=== PATIENT | female | born 1950 | race Asian ===

== ENCOUNTER 2024-02-19 08:12 | Inpatient (IN) | payer OTHER, SELFPAY ==
[2024-02-18 15:08] VITALS: BP 157/82
--- NOTE | 2024-02-18 16:09 | ED.GENMED ---
History of Present Illness
General
Chief Complaint: Breathing Problem
Time Seen by Provider: 02/18/24 16:09
History of Present Illness
History of Present Illness:
HPI: Patient comes in due to worsening shortness of breath. She started having shortness of breath in June. She lives in [place] and was seen by a waste specialist and also is known to a solder making laborer. She states she was diagnosed with
'bronchiectasis and asthma earlier this year'. She had been on Wixela this led to oral thrush and she is not just taking albuterol. Her med list includes Solu-Medrol which she takes for 'arthritis'. Her son-in-law, lives locally noted that she
seemed to be getting more more short of breath the she was brought here as he was also concerned of ongoing wheezing.
EXAM:
GENERAL: Well appearing in no distress
HEENT: Moist oral mucosa
CARDIOVASCULAR: No murmurs, normal heart rate, regular rhythm, No chest wall tenderness
PULMONARY: Mild respiratory distress with mild conversational dyspnea, breath sounds are equally decreased with moderate wheeze
ABDOMEN: Soft with no peritoneal signs, no tenderness
NEUROLOGIC: Excellent strength all extremities, no coordination deficits
PSYCHIATRIC: Appropriate mental status, normal insight and judgement
EXTREMITIES: Nontender, trace if any distal lower extremity edema, moves all extremities equally
SKIN: No rash, no lesions
TIME OF INITIAL ENCOUNTER: 4:20 PM
NUMBER AND COMPLEXITY OF PROBLEMS ADDRESSED AT THE ENCOUNTER
� Chronic conditions affecting care: Asthma, high blood pressure, GERD
� Acute Exacerbation and/or Progression of Chronic Illness: This is a subacute problem and is worsening
� Differential Diagnosis includes: Exacerbation of bronchiectasis, reactive airway disease, asthma, pneumonia
AMOUNT AND/OR COMPLEXITY OF DATA TO BE REVIEWED AND ANALYZED
� I performed an independent evaluation of and my interpretation is:
EKG: Sinus 82, normal axis, no acute ST abnormality
CT:
X-rays:
Laboratory Studies: White count is 9.3, BNP is low
Other:
� Review of other/old records: No old records available for review in [facility]
� Clinical information was obtained by an independent historian: I spoke to son-in-law at bedside
� Prescriptions/Medications Considered but not given:
� Further testing considered but not performed:
RISK OF COMPLICATIONS AND/OR MORBIDITY OR MORTALITY OF PATIENT MANAGEMENT
� Social determinants of health affecting care: Lives in [place], here just visiting
� Discussion with other providers:
� Escalation of care including admission/observation vs risk of discharge considered: The patient has mild respiratory distress upon arrival with room air sats of 91 to 93%. I am giving IV steroids and will give DuoNebs. She
reports history of recently diagnosed bronchiectasis and asthma.
Course
Orders/Labs/Results
Orders:
Orders
02/18/24 15:14
Electrocardiogram (*1) Urgent
Reason for Study: Shortness of Breath
EKG- Treatment ONCE
02/18/24 16:20
Ipratropium/Albuterol Sulfate [Duoneb] 3 ml INH R NOW STA
MethylPREDNISolone PF [Solu-Medrol Pf] 125 mg IV NOW STA
02/18/24 16:21
Ipratropium/Albuterol Sulfate [Duoneb] 3 ml INH R NOW STA
CR Chest - 2 Views Urgent
Comment:
Reason For Exam: worsening SOB; 'bronchiectasis/asthma' per family
02/18/24 16:22
Comprehensive Metabolic Panel Urgent
NT-proBNP Urgent
02/18/24 16:23
Complete Blood Count/With Diff Urgent
Abnormal Lab Results
02/18/24 02/18/24
16:22 16:23
Absolute Monos (auto) 0.8 H 10^3/uL
(0.1-0.6)
Lymphocytes % 19.1 L %
(20.5-51.1)
AST 38 H U/L
(14-36)
Alkaline Phosphatase 133 H U/L
(38-126)
02/18/24 16:23
02/18/24 16:22
Vital Signs
Initial and Last Documented VS:
Initial Vital Signs
Temp Pulse Resp BP Pulse Ox
97.7 F 78 18 157/82 93
02/18/24 15:08 02/18/24 15:08 02/18/24 15:08 02/18/24 15:08 02/18/24 15:08
Last Documented Vital Signs
Temp Pulse Resp BP Pulse Ox
97.7 F 78 18 157/82 93
02/18/24 15:08 02/18/24 15:08 02/18/24 15:08 02/18/24 15:08 02/18/24 16:20
ED Attending Note
-
Portions of this chart may have been created with voice recognition software.� Occasional wrong word or��sound alike� substitutions may have occurred due to the inherent limitations of voice recognition software.
Discharge Plan
Interventions
Interventions:
*Risk Screen - Suicide Last Done: 02/18/24 15:08
*General Assessment Last Done: 02/18/24 15:08
*Neglect/Abuse Screening Last Done: 02/18/24 15:08
*ED COVID-19 Vaccine History Last Done: 02/18/24 15:08
ED- Cardiac Assessment Last Done: 02/18/24 16:20
ED- Pulmonary Assessment Last Done: 02/18/24 16:20
Discharge Date and Time
Print Language: SLOVENIAN
[2024-02-18 16:14] VITALS: BP 173/101
[2024-02-18 16:17] VITALS: BMI 22.3
[2024-02-18 16:30] LABS: % Basophils 0.6 % (0-2); % Eosinophils 5.1 % (0-6); % Immature Granulocytes 0.2 % (0-0.5); % Lymphocytes 19.1 % (20.5-51.1); % Monocytes 8.9 % (1.7-9.3); % Neutrophils 66.1 % (42.2-75.2); Absolute Basophils 0.1 10^3/uL (0-0.2); Absolute Eosinophils 0.5 10^3/uL (0-0.7); Absolute Lymphocytes 1.8 10^3/uL (1.2-3.4); Absolute Monocytes 0.8 10^3/uL (0.1-0.6); Absolute Neutrophils 6.1 10^3/uL (1.4-6.5); Hematocrit 40.6 % (37.0-47.0); Hemoglobin 14.1 g/dL (12.0-16.0); Mean Corp Hgb Conc. 34.7 g/dL (33.0-37.0); Mean Corpuscular Hgb 30.6 pg (27.0-31.0); Mean Corpuscular Volume 88.1 fL (81.0-99.0); Mean Platelet Volume 9.6 fL (7.4-10.4); Nucleated Red Blood Cells % 0 %; Platelet Count 271 10^3/uL (130-400); Red Blood Cell Count 4.61 10^6/uL (4.20-5.40); Red Cell Dist. Width 12.2 % (11.5-14.5); White Blood Cell Count 9.3 10^3/uL (4.8-10.8)
[2024-02-18] MEDS: DUONEB 3 ML INH ×4 (16:32→20:07)
[2024-02-18] MEDS: SOLU-MEDROL PF 125 MG IV (16:33)
[2024-02-18 16:51] LABS: NT-proBNP 240 pg/ml
[2024-02-18 16:52] LABS: ALT (SGPT) 29 U/L (0-35); AST (SGOT) 38 U/L (14-36); Albumin 4.7 g/dl (3.5-5.0); Alkaline Phosphatase 133 U/L (38-126); Blood Urea Nitrogen 16 mg/dl (7-17); Calcium 9.2 mg/dl (8.4-10.2); Carbon Dioxide 26 mmol/L (22-30); Chloride 105 mmol/L (98-107); Estimated Creatinine Clearance 52 ml/min; Glucose 88 mg/dl (70-99); Potassium 4.8 mmol/L (3.5-5.1); Sodium 143 mmol/L (135-145); Total Bilirubin 0.5 mg/dl (0.2-1.3); Total Protein 8.2 g/dl (6.3-8.2); eGFR > 60.00
[2024-02-18 17:22] VITALS: BP 148/64
[2024-02-18 18:00] VITALS: BP 141/71
--- NOTE | 2024-02-18 18:02 | HPS.HSE ---
Family Physician
-
Family Physician:
Chief Complaint
-
worsening soB and wheeze
History of Present Illness
73F res of [place] HX chronic Solu-Medrol for arthritis , recently Dxed Asthma, Bronchiectasis seeen at ER for evalaution of
- worsening SoB since Jun
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
- had been on Wixela this led to oral thrush and she is not just taking albuterol.
- Her son-in-law, lives locally noted that she seemed to be getting more more short of breath and wheezing
Medical History
Past Medical History
Past Medical History: Reports Asthma, HTN and Other (Bronchiectasis )
Additional Past Medical History:
Arthritis , Hernia , GERD
Past Surgical History: Reports Appendectomy and Gynocological (htsterectomy )
Social History
Tobacco: Non-smoker
Alcohol: None
Family History
Family History: Not pertinent
Allergies / Home Medications
Allergies reflects when Allergies were last updated in [facility].
Home Medications with original date entered in [facility]
Allergy/Medication List:
Allergies
Allergy/AdvReac Type Severity Reaction Status Date / Time
clindamycin Allergy Unknown Verified 02/18/24 15:14
codeine Allergy Unknown Verified 02/18/24 15:14
morphine Allergy Unknown Verified 02/18/24 15:14
Home Medications
albuterol sulfate 90 mcg/actuation aerosol inhaler 2 inh inhalation R DAILY 02/18/24
calcium carbonate 500 mg PO DAILY 02/18/24
cholecalciferol (vitamin D3) 25 mcg (1,000 unit) tablet 25 mcg PO DAILY 02/18/24
cyclosporine 0.05 % eye drops in a dropperette (Restasis) 1 drp BOTH EYES BID 02/18/24
latanoprost 0.005 % eye drops 1 drp BOTH EYES QPM 02/18/24
losartan 50 mg tablet 50 mg PO DAILY 02/18/24
mesalamine 1.2 gram tablet,delayed release (Lialda) 2.4 g PO DAILY 02/18/24
omeprazole 40 mg capsule,delayed release 40 mg PO DAILY 02/18/24
Review of Systems
-
Constitutional: Reports No Symptoms
EENT: Reports No Symptoms
Respiratory: Reports See HPI and Trouble Breathing
Cardiac: Reports No Symptoms
Abdomen/GI: Reports No Symptoms
: Reports No Symptoms
Musculoskeletal: Reports No Symptoms
Skin: Reports No Symptoms
Neurological: Reports No Symptoms
Endocrine: Reports No Symptoms
Hematologic/Lymphatic: Reports No Symptoms
Psych: Reports No Symptoms
Physical Exam
Vital Signs
Vital Signs
Temp Pulse Resp BP Pulse Ox
97.7 F 78 18 148/64 92
02/18/24 15:08 02/18/24 15:08 02/18/24 15:08 02/18/24 17:22 02/18/24 17:22
Physical Exam
General: Well Developed, Well Nourished and No Apparent Distress
HEENT: NormoCephalic, Moist mucous membranes and Atraumatic
Cardiac: S1/S2 and Regular Rhythm; No Murmur or Rub
GI: Soft, Non Tender, Non Distended and Normal Bowel Sounds; No Organomegaly
Rectal: Deferred by Provider
Musculoskeletal: No Clubbing, No Cyanosis and No Edema
Skin: No Rash
Neuro: Nonfocal/grossly intact
Laboratory Results
-
02/18/24 16:23
02/18/24 16:22
Laboratory Results
Total Bilirubin 0.5 mg/dl (0.2-1.3) 02/18/24 16:22
AST 38 U/L (14-36) H 02/18/24 16:22
ALT 29 U/L (0-35) 02/18/24 16:22
Alkaline Phosphatase 133 U/L (38-126) H 02/18/24 16:22
Data Reviewed
-
Diagnostic Radiology: Report Reviewed by me
Impression/Plan
-
Reviewed VS: afebrile RR 18 BP 155/80 POx low 90s on RA
CXR: Mild bilateral upper lobe bronchiectasis
No prior hospitalist admission:
ASSESSMENT & PLAN
Progressive SoB with wheeze: Afebrile and nl WCC
Suspect AE Asthma/ Bronchiectasis with bronchospasm
- sputum is mostly white
- CXR: Mild bilateral upper lobe bronchiectasis
- cont IV Solumedrol 40mg q12h
- Cont DuoNeb QID and PRN
- Supplemental O2 to keep > 92
- check PCT
- Hold off ABx for now
- Pul consult
Essential HTN
- cont. losartan
HX Colitis
- cont. Mesalamine
GERD
- on MAT CLEANING MACHINE OPERATOR PO PPI
DVT Px: LMWH
Code: full code
Obs MS
[2024-02-18 18:55] LABS: Procalcitonin < 0.05 ng/ml (0.0-0.25)
[2024-02-18 19:00] VITALS: BP 131/67
[2024-02-18 19:42] VITALS: BMI 25.3
--- NOTE | 2024-02-18 19:55 | PTCARENOTE ---
Received pt from ED via stretcher. Pt ambulated to bed independently. Son-in-law at bedside. Pt complained of headache, requested food, boxed lunch provided. AAOx3. VSS. Assessed and oriented to room. Pt verbalized understanding of call da silva. Call
da silva within close reach.
[2024-02-18 20:06] VITALS: BP 114/74
--- NOTE | 2024-02-18 20:45 | PTCARENOTE ---
Pt complained of dry cough and indigestion/heartburn. PHOTOGRAPHIC RESTORER made aware, new orders provided, see MAR. Will continue to monitor.
[2024-02-18] MEDS: RESTASIS 0.05% OPHTHALMIC EMULSION 1 DROPS BOTH EYES (21:21)
[2024-02-18] MEDS: TUMS CHEWABLE TABLET 200 MG PO (21:21)
[2024-02-18] MEDS: LOVENOX 40 MG SC (21:21)
[2024-02-18] MEDS: ROBITUSSIN DM 5 ML PO (21:21)
[2024-02-18] MEDS: TYLENOL 650 MG PO (22:09)
[2024-02-19] VITALS: BP 103/54
[2024-02-19] MEDS: SOLU-MEDROL PF 40 MG IV ×2 (04:40→17:05)
[2024-02-19] MEDS: FLUSH (NSS) 2 FLUSH IV (04:40)
[2024-02-19 06:44] LABS: % Basophils 0.2 % (0-2); % Immature Granulocytes 0.4 % (0-0.5); % Lymphocytes 13.5 % (20.5-51.1); % Monocytes 3.3 % (1.7-9.3); % Neutrophils 82.6 % (42.2-75.2); Absolute Lymphocytes 0.7 10^3/uL (1.2-3.4); Absolute Monocytes 0.2 10^3/uL (0.1-0.6); Absolute Neutrophils 4.2 10^3/uL (1.4-6.5); Hematocrit 35.9 % (37.0-47.0); Hemoglobin 12.5 g/dL (12.0-16.0); Mean Corp Hgb Conc. 34.8 g/dL (33.0-37.0); Mean Corpuscular Hgb 30.3 pg (27.0-31.0); Mean Corpuscular Volume 86.9 fL (81.0-99.0); Mean Platelet Volume 9.8 fL (7.4-10.4); Nucleated Red Blood Cells % 0 %; Platelet Count 257 10^3/uL (130-400); Red Blood Cell Count 4.13 10^6/uL (4.20-5.40); White Blood Cell Count 5.1 10^3/uL (4.8-10.8)
[2024-02-19 07:31] LABS: Blood Urea Nitrogen 17 mg/dl (7-17); Calcium 9.1 mg/dl (8.4-10.2); Carbon Dioxide 24 mmol/L (22-30); Chloride 106 mmol/L (98-107); Estimated Creatinine Clearance 57 ml/min; Glucose 127 mg/dl (70-99); Potassium 4.8 mmol/L (3.5-5.1); Sodium 141 mmol/L (135-145); eGFR > 60.00
[2024-02-19 07:48] VITALS: BP 130/70
[2024-02-19] MEDS: DUONEB 3 ML INH ×4 (07:51→19:27)
[2024-02-19] MEDS: COZAAR 50 MG PO (08:13)
[2024-02-19] MEDS: VITAMIN D3 (cholecalciferol) 25 MCG PO (08:13)
[2024-02-19] MEDS: OSCAL CAL 500 500 MG PO (08:13)
[2024-02-19] MEDS: RESTASIS 0.05% OPHTHALMIC EMULSION 1 DROPS BOTH EYES ×2 (08:13→20:06)
[2024-02-19] MEDS: TESSALON PERLES 200 MG PO ×2 (08:13→20:11)
[2024-02-19] MEDS: PROTONIX 40 MG PO (08:13)
[2024-02-19 08:45] VITALS: BP 135/77; PULSE 97; O2SAT 93
--- NOTE | 2024-02-19 09:24 | PTOTSP ---
Received order for PT and reviewed chart. S/w OT who reports pt is ambulating independently without need for any assistive device. No PT needs. Will sign off.
--- NOTE | 2024-02-19 10:10 | W.PN.HOSP.TC ---
Today's Communication/Plan
-
c/w Neb, Steroid, Cough medicine
Assessment / Plan
Assessment / Plan
Physical Exam
General: Well Developed, Well Nourished and No Apparent Distress
HEENT: NormoCephalic, Moist mucous membranes and Atraumatic
Cardiac: S1/S2 and Regular Rhythm; No Murmur or Rub
GI: Soft, Non Tender, Non Distended and Normal Bowel Sounds; No Organomegaly
Rectal: Deferred by Provider
Musculoskeletal: No Clubbing, No Cyanosis and No Edema
Skin: No Rash
Neuro: Nonfocal/grossly intact
# acute exacerbation of bronchiectasis/asthma.
Bilateral expiratory wheezes heard, not severe
No hypoxia
She presented with progressive SOB with wheeze:
Afebrile and nl WCC
- sputum is mostly white
- CXR: Mild bilateral upper lobe bronchiectasis
- cont IV SoluMedrol 40mg q12h
- Cont DuoNeb QID and PRN
- Supplemental O2 to keep > 92
- Cough medicine, add Tessalon
- Appreciate pulmonary help
# Mild elevation in AST
No abd pain, no nausea
will monitor
No jaundice.
# Essential HTN
- cont. losartan
#HX Colitis
- cont. Mesalamine
# GERD
- on BUSINESS SERVICES VICE PRESIDENT PO PPI
Total time spent to see the patient, examine the patient on the floor, review data and lab results, discuss treatment plan with patient, nursing staff around 55 minutes
Anticipated Discharge: Within 24 hours
Subjective/Interval History
-
Date of Service: February 19, 2024
No sob
No chest pain
No fevers
Objective Data
-
Labs:
Laboratory Results
02/19/24
06:35
WBC 5.1
Hgb 12.5
Hct 35.9 L
Plt Count 257
Sodium 141
Potassium 4.8
Chloride 106
Carbon Dioxide 24
BUN 17
Creatinine 0.6
Glucose 127 H
Calcium 9.1
Vital Signs:
Vital Signs
Temp Pulse Resp BP Pulse Ox
97.9 F 67 16 130/70 92
02/19/24 07:48 02/19/24 08:13 02/19/24 07:48 02/19/24 08:13 02/19/24 07:48
I&O
02/18/24 02/19/24 02/20/24
06:59 06:59 06:59
Intake Total 240 / 240
Balance 240 / 240
--- NOTE | 2024-02-19 11:13 | CON.PUL ---
Consultation
Consultation Request
Date/Time Consultation Requested: 02/19/2024
Date/Time Consultation Performed: 02/19/2024
Requesting Provider: Dr. Hand
Performing Provider: Dr. Yao Chauhan
Reason for Consultation: Bronchiectasis/acute exacerbation
Medical History
-
History of Present Illness:
This is 73-year-old woman resident of [place], history of chronic steroid use for arthritis, recently diagnosed with asthma/bronchiectasis reports since June increased shortness of breath. She has been followed by pulmonary and rheumatology in
[place] and she was told she had bronchiectasis earlier this year.
She discontinued her inhaler Wixela due to oral thrush.
She was brought into the emergency room since she had increased shortness of breath and wheezing.
There is no report of hemoptysis or phlegm production.
Denies weight loss.
Reports intermittent acid reflux and)
Denies swallowing problems from
Has history of Crohn's disease on mesalamine. On remission/controlled
Denies weight loss, night sweats or fevers.
She is originally from [place], history of latent TB status post INH many years ago.
Past Medical History
Past Medical History: Other (See assessment and plan)
Social History
Tobacco: Non-smoker
Alcohol: None
Family History
Family History: Reviewed & Not Pertinent
Allergies / Home Medications
Allergies
Allergy/AdvReac Type Severity Reaction Status Date / Time
clindamycin Allergy Unknown Verified 02/18/24 15:14
codeine Allergy Unknown Verified 02/18/24 15:14
morphine Allergy Unknown Verified 02/18/24 15:14
Home Medications
�Medication �Instructions �Recorded �Confirmed �Last Taken �Type
albuterol sulfate 90 mcg/actuation 2 inh inhalation R DAILY 02/18/24 02/18/24 02/18/24 History
aerosol inhaler Lung/Breathing Issues
calcium carbonate 500 mg PO DAILY Supplement 02/18/24 02/18/24 02/18/24 History
cholecalciferol (vitamin D3) 25 25 mcg PO DAILY Supplement 02/18/24 02/18/24 02/18/24 History
mcg (1,000 unit) tablet
cyclosporine 0.05 % eye drops in a 1 drp BOTH EYES BID Eye Condition 02/18/24 02/18/24 02/18/24 History
dropperette (Restasis)
latanoprost 0.005 % eye drops 1 drp BOTH EYES QPM Eye Condition 02/18/24 02/18/24 02/17/24 History
losartan 50 mg tablet 50 mg PO DAILY Blood Pressure 02/18/24 02/18/24 02/18/24 History
mesalamine 1.2 gram tablet,delayed 2.4 g PO DAILY Gastrointestinal 02/18/24 02/18/24 02/18/24 History
release (Lialda) Issue
omeprazole 40 mg capsule,delayed 40 mg PO DAILY Gastrointestinal 02/18/24 02/18/24 02/18/24 History
release Issue
Review of Systems
-
History Source: Patient
All other systems: Negative unless noted
Vitals / Labs / Diagnostic Testing
Vital Signs
Temp Pulse Resp BP Pulse Ox
97.9 F 67 16 130/70 92
02/19/24 07:48 02/19/24 08:13 02/19/24 07:48 02/19/24 08:13 02/19/24 07:48
Lab Data
02/19/24 06:35
02/19/24 06:35
Diagnostic Testing:
Physical Exam
-
HEENT: Normocephalic
Cardiovascular: S1/S2
Respiratory: Wheeze (Minimal expiratory wheezing ), Rales, Non-Labored Respirations and Other (Bibasilar squeaks)
GI: Soft and Non Distended
Neurology: Awake, Alert, AO x 3 and No Motor Deficits
Skin: Warm
General: Comfortable
Assessment
-
Shortness of breath/cough: Possible acute exacerbation of bronchiectasis/asthma.
Chest x-ray reviewed, showed upper lobe predominant possible bronchiectasis. No acute infiltrate.
Conditions present prior admission:
? Asthma/bronchiectasis recently diagnosed-follows up with the pulmonary doctor in [place]. No details available
Hypertension
Bronchiectasis
Arthritis
GERD
Status post appendectomy and hysterectomy
Non-smoker
originally from [place] moved to [place] many years ago.
Patient report history of latent TB status post INH.
Assessment and plan:
Clinical picture suggestive of asthma exacerbation: Cannot rule out infectious etiology.
Patient has not been using her daily inhaler after developing thrush.
5% eosinophils on for CBC in the emergency room. Suggest some allergic component as well. Singulair may be an option in the outpatient setting.
Differential diagnosis for her bronchiectasis includes inflammatory bowel disease, prior tuberculosis exposure, FRANCINE, idiopathic etc. A CT of the chest will be helpful in the outpatient setting.
I will defer further evaluation to her curb worker in [place].
-
Chest x-ray without pneumonia-chronic upper lobe predominant mild bronchiectasis. No CAT scans or prior imaging to review. Usually a resident of [place]-was seen recently by pulmonology and she was started to have bronchiectasis, no details
available.
Agree with nebulizers, DuoNeb 4 times a day
In the outpatient developed thrush with Wixela. It was severe per patient report.
-
IV Solu-Medrol, hopefully can transition to prednisone tomorrow.
Sputum culture if able to produce.
Given bronchiectasis will start a course of Z-Av orally.
Acapella device
Antitussives
Patient does not want to restart Wixela upon discharge due to severe thrush.
She may need to transition to aerosol medication such as Symbicort.
-
Borderline pulse oximetry 92%. Home oxygen assessment tomorrow morning 02/20/2024.
-
Above discussed in detail with patient and daughter who was at the bedside.
-
Recommend outpatient pulmonary follow-up in the short-term.
Patient is not sure how long she is going to stay. She usually lives in [place]. I will leave my information in the chart for short-term follow-up if she stays longer than a few weeks.
-
[2024-02-19] MEDS: ZITHROMAX 500 MG PO (14:26)
[2024-02-19 15:58] VITALS: BP 117/62
[2024-02-19] MEDS: LOVENOX 40 MG SC (17:05)
[2024-02-19] MEDS: XALATAN OPHTHALMIC SOLUTION 1 DROP BOTH EYES (17:06)
[2024-02-19 23:10] VITALS: BP 113/59
[2024-02-20] MEDS: SOLU-MEDROL PF 40 MG IV ×2 (04:07→18:09)
[2024-02-20] MEDS: DUONEB 3 ML INH ×4 (07:36→19:39)
[2024-02-20 07:46] VITALS: BP 135/71
[2024-02-20] MEDS: RESTASIS 0.05% OPHTHALMIC EMULSION 1 DROPS BOTH EYES ×2 (08:07→20:33)
[2024-02-20] MEDS: ZITHROMAX 500 MG PO (08:07)
[2024-02-20] MEDS: OSCAL CAL 500 500 MG PO (08:07)
[2024-02-20] MEDS: COZAAR 50 MG PO (08:07)
[2024-02-20] MEDS: VITAMIN D3 (cholecalciferol) 25 MCG PO (08:07)
[2024-02-20] MEDS: PROTONIX 40 MG PO (08:08)
[2024-02-20] MEDS: NON-FORMULARY ITEM 2.4 GRAMS PO (08:08)
[2024-02-20 08:21] LABS: ALT (SGPT) 23 U/L (0-35); AST (SGOT) 27 U/L (14-36); Albumin 4.2 g/dl (3.5-5.0); Alkaline Phosphatase 108 U/L (38-126); Blood Urea Nitrogen 25 mg/dl (7-17); Calcium 9.5 mg/dl (8.4-10.2); Carbon Dioxide 26 mmol/L (22-30); Chloride 106 mmol/L (98-107); Estimated Creatinine Clearance 49 ml/min; Glucose 120 mg/dl (70-99); Potassium 5.2 mmol/L (3.5-5.1); Sodium 142 mmol/L (135-145); Total Bilirubin 0.3 mg/dl (0.2-1.3); Total Protein 7.4 g/dl (6.3-8.2); eGFR > 60.00
--- NOTE | 2024-02-20 09:18 | W.PN.HOSP.TC ---
Today's Communication/Plan
-
Possible dc
f/w pulmonary recommendation
Assessment / Plan
Assessment / Plan
Physical Exam
General: Well Developed, Well Nourished and No Apparent Distress
HEENT: Normocephalic, Moist mucous membranes and Atraumatic
Lung: wheezes with rales heard
Cardiac: S1/S2 and Regular Rhythm; No Murmur or Rub
GI: Soft, Non Tender, Non Distended and Normal Bowel Sounds; No Organomegaly
Rectal: Deferred by Provider
Musculoskeletal: No Clubbing, No Cyanosis and No Edema
Skin: No Rash
Neuro: Nonfocal/grossly intact
# acute exacerbation of bronchiectasis/asthma.
Bilateral expiratory wheezes heard, not severe
No hypoxia
She presented with progressive SOB with wheeze:
Afebrile and nl WCC
- sputum is mostly white
- CXR: Mild bilateral upper lobe bronchiectasis
- cont IV SoluMedrol 40mg q12h
- Cont DuoNeb QID and PRN
- Supplemental O2 to keep > 92
- Started on Zithromax
- Cough medicine, add Tessalon
- Appreciate pulmonary help
# Mild elevation in AST
No abd pain, no nausea
will monitor
No jaundice.
# Essential HTN
- cont. losartan
#HX Colitis
- cont. Mesalamine
# GERD
- on PORTFOLIO DIRECTOR PO PPI
Total time spent to see the patient, examine the patient on the floor, review data and lab results, discuss treatment plan with patient, nursing staff around 55 minutes
Anticipated Discharge: Within 24 hours
Subjective/Interval History
-
Date of Service: February 20, 2024
Still cough
No hypoxia
Objective Data
-
Labs:
Laboratory Results
02/20/24
07:17
Sodium 142
Potassium 5.2 H
Chloride 106
Carbon Dioxide 26
BUN 25 H
Creatinine 0.7
Glucose 120 H
Calcium 9.5
Total Bilirubin 0.3
AST 27
ALT 23
Alkaline Phosphatase 108
Vital Signs:
Vital Signs
Temp Pulse Resp BP Pulse Ox
98.1 F 79 17 135/71 92
02/20/24 07:46 02/20/24 08:07 02/20/24 07:46 02/20/24 08:07 02/20/24 07:46
I&O
02/19/24 02/20/24 02/21/24
06:59 06:59 06:59
Intake Total 240 / 240 960 / 960
Balance 240 / 240 960 / 960
--- NOTE | 2024-02-20 13:34 | W.PN.PUL3 ---
Today's Communication / Plan
-
continue IV Solu Medrol
Continue DuoNeb
Pulmicort was added twice a day
Will obtain a nebulizer prior to discharge
continue Zithromax
Not ready for discharge
Assessment
-
Shortness of breath/cough: Possible acute exacerbation of bronchiectasis/asthma.
Chest x-ray reviewed, showed upper lobe predominant possible bronchiectasis. No acute infiltrate.
Conditions present prior admission:
? Asthma/bronchiectasis recently diagnosed-follows up with the pulmonary doctor in [place]. No details available
Hypertension
Bronchiectasis
Arthritis
GERD
Status post appendectomy and hysterectomy
Non-smoker
originally from [place] moved to the many years ago.
Patient report history of latent TB status post INH.
Assessment and plan:
Clinical picture suggestive of asthma exacerbation: Cannot rule out infectious etiology.
Patient has not been using her daily inhaler after developing thrush.
5% eosinophils on for CBC in the emergency room. Suggest some allergic component as well. Singulair may be an option in the outpatient setting.
Differential diagnosis for her bronchiectasis includes inflammatory bowel disease, prior tuberculosis exposure, FRANCINE, idiopathic etc. A CT of the chest will be helpful in the outpatient setting.
I will defer further evaluation to her threader in [place].
She would like to follow up locally temporarily while she is leaving up with her daughter. Information was left in the chart.
-
Chest x-ray without pneumonia-chronic upper lobe predominant mild bronchiectasis. No CAT scans or prior imaging to review. Usually a resident of [place]-was seen recently by pulmonology and she was started to have bronchiectasis, no details
available.
Continue DuoNeb 4 times a day
Given ongoing wheezing, will add Pulmicort twice a day. Recommend a nebulizer at home and discharged on this medication.
In the outpatient developed thrush with Wixela. It was severe per patient report.
-
IV Solu-Medrol, Continue without change for today. Still wheezing. Still having cough paroxysms.
Sputum culture if able to produce.
Continue course of Z-Av orally. may consider low-dose macrolide therapy in the outpatient setting for symptom control.
Acapella device
Antitussives
Patient does not want to restart Wixela upon discharge due to severe thrush. start Pulmicort as above.
was discussed with case maker and obtaining a nebulizer machine prior to discharge.
-
Borderline pulse oximetry 92%.
Oxygen supplementation discontinued.
-
Dr. Chauhan discussed in detail with patient and daughter who was at the bedside. 02/19/2024 and 02/20/2024.
-
Recommend outpatient pulmonary follow-up in the short-term.
Patient is not sure how long she is going to stay. She usually lives in [place]. I will leave my information in the chart for short-term follow-up if she stays longer than a few weeks.
-
Not ready for discharge, still with cough paroxysms and bronchospasm.
Subjective Data
-
Date of Service:
Date of Service: February 20, 2024
Chief Complaint: Pulmonary Follow Up (Acute asthma exacerbation)
Subjective:
patient reports ongoing coughing
Was able to ambulate around the [place] without significant shortness of breath
Reports occasional cough paroxysms of chest tightness
Review of Systems
Cardiopulmonary: Dyspnea (Improved), Cough ( persistent) and Wheezing ( persistent)
GI: Abdominal Pain (n), Nausea (n) and Vomiting (n)
Objective Data
Data Reviewed
Vital Signs / I&O / Oxygen:
Vital Signs
Temp Pulse Resp BP Pulse Ox
98.1 F 79 17 135/71 92
02/20/24 07:46 02/20/24 08:07 02/20/24 07:46 02/20/24 08:07 02/20/24 07:46
Intake and Output
02/19/24 02/20/2424
06:59 06:59 06:59
Intake Total 240 / 240 960 / 960
Balance 240 / 240 960 / 960
SaO2 92
Nasal Cannula flow liters per 94
minute
Physical Exam
General: Comfortable
HEENT: Normocephalic
Cardiovascular: S1-S2
Respiratory: Wheeze ( bilateral expiratory wheezing, bibasilar squeaks) and Non-Labored Respirations
GI: Soft and Non Distended
Neurology: Awake and No Motor Deficits
Labs/Micro/Reports
Lab Data
02/19/24 06:35
02/20/24 07:17
[2024-02-20] MEDS: PULMICORT INH (14:13)
[2024-02-20 16:24] VITALS: BP 111/59
[2024-02-20] MEDS: LOVENOX 40 MG SC (18:09)
[2024-02-20] MEDS: XALATAN OPHTHALMIC SOLUTION 1 DROP BOTH EYES (18:10)
[2024-02-20] MEDS: PULMICORT 0.5 MG INH (19:39)
[2024-02-20] MEDS: TESSALON PERLES 200 MG PO (20:38)
[2024-02-20 23:15] VITALS: BP 109/61
[2024-02-21] MEDS: SOLU-MEDROL PF 40 MG IV (04:59)
[2024-02-21 07:18] VITALS: BP 150/86
[2024-02-21] MEDS: DUONEB 3 ML INH ×2 (07:30→11:35)
[2024-02-21] MEDS: PULMICORT 0.5 MG INH (07:30)
[2024-02-21] MEDS: ZITHROMAX 500 MG PO (07:44)
[2024-02-21] MEDS: OSCAL CAL 500 500 MG PO (07:44)
[2024-02-21] MEDS: PROTONIX 40 MG PO (07:44)
[2024-02-21] MEDS: VITAMIN D3 (cholecalciferol) 25 MCG PO (07:44)
[2024-02-21] MEDS: COZAAR 50 MG PO (07:44)
[2024-02-21] MEDS: RESTASIS 0.05% OPHTHALMIC EMULSION 1 DROPS BOTH EYES (07:45)
[2024-02-21] MEDS: NON-FORMULARY ITEM 2.4 GRAMS PO (08:36)
--- NOTE | 2024-02-21 08:51 | W.PN.HOSP.TC ---
Today's Communication/Plan
-
Discharge
Assessment / Plan
Assessment / Plan
Physical Exam
General: Well Developed, Well Nourished and No Apparent Distress
HEENT: Normocephalic, Moist mucous membranes and Atraumatic
Lung: much less wheezes with rales heard
Cardiac: S1/S2 and Regular Rhythm; No Murmur or Rub
GI: Soft, Non Tender, Non Distended and Normal Bowel Sounds; No Organomegaly
Rectal: Deferred by Provider
Musculoskeletal: No Clubbing, No Cyanosis and No Edema
Skin: No Rash
Neuro: Nonfocal/grossly intact
# acute exacerbation of bronchiectasis/asthma.
Less Bilateral expiratory wheezes heard.
No hypoxia
She presented with progressive SOB with wheeze:
Afebrile and nl WCC
- sputum is mostly white
- CXR: Mild bilateral upper lobe bronchiectasis
- cont IV SoluMedrol 40mg q12h , change to oral prednisone upon dc
- Cont DuoNeb QID and PRN, dc on Pulmicort Neb and Albuterol Neb as needed
- Started on Zithromax , 5 days course
- Cough medicine, added Tessalon
- Appreciate pulmonary help. I d/w pulmonary doctor, dc instructions.
# Mild elevation in AST
No abd pain, no nausea
Tolerating diet
No jaundice.
# Essential HTN
- cont. losartan
#HX Colitis
- cont. Mesalamine
# GERD
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
Total discharge time spent to see the patient, examine the patient on the floor, review data and lab results, discuss discharge plan with patient, Dr Chauhan, nursing staff around 65 minutes
Anticipated Discharge: Today
Subjective/Interval History
-
Date of Service: February 21, 2024
Doing much better
No sob
Less cough
Objective Data
-
Vital Signs:
Vital Signs
Temp Pulse Resp BP Pulse Ox
98.0 F 81 17 150/86 92
02/21/24 07:18 02/21/24 07:44 02/21/24 07:18 02/21/24 07:44 02/21/24 07:18
I&O
02/20/24 02/21/24 02/22/24
06:59 06:59 06:59
Intake Total 960 / 960 930 / 930
Balance 960 / 960 930 / 930
--- NOTE | 2024-02-21 11:33 | W.PN.PUL3 ---
Today's Communication / Plan
-
ok for DC today.
See note
Assessment
-
Shortness of breath/cough: Possible acute exacerbation of bronchiectasis/asthma.
Chest x-ray reviewed, showed upper lobe predominant possible bronchiectasis. No acute infiltrate.
Conditions present prior admission:
? Asthma/bronchiectasis recently diagnosed-follows up with the pulmonary doctor in [place]. No details available
Hypertension
Bronchiectasis
Arthritis
GERD
Status post appendectomy and hysterectomy
Non-smoker
originally from [place] moved to the many years ago.
Patient report history of latent TB status post INH.
Assessment and plan:
Clinical picture suggestive of asthma exacerbation: Cannot rule out infectious etiology.
Patient has not been using her daily inhaler after developing thrush.
5% eosinophils on for CBC in the emergency room. Suggest some allergic component as well. Singulair may be an option in the outpatient setting.
Differential diagnosis for her bronchiectasis includes inflammatory bowel disease, prior tuberculosis exposure, FRANCINE, idiopathic etc. A CT of the chest will be helpful in the outpatient setting.
I will defer further evaluation to her director quality assurance in [place].
She would like to follow up locally temporarily while she is leaving up with her daughter. Information was left in the chart.
-
Clinically improved.
Not bronchospastic on exam 02/21/2024
Chest x-ray without pneumonia-chronic upper lobe predominant mild bronchiectasis. No CAT scans or prior imaging to review. Usually a resident of [place]-was seen recently by pulmonology and she was started to have bronchiectasis, no details
available.
-
Ok for DC today
RX Neubizer: with Pulmicort twice a day and albuterol q6r PRN
Albuterol MDI PRN.
Transition to prednisone: 40mg PO and decrease by 10mg every 48hr to off.
Comlete Z pack.
PRN antitussives.
will decide on outpx what inhalers are needed once she improves.
Follow up in my office 1-2weeks with BERNABE, info on Chart.
Acapella device
-
Patient does not want to restart Wixela upon discharge due to severe thrush. start Pulmicort as above.
-
Oxygen supplementation has been DC.
-
Dr. Chauhan discussed in detail with patient and daughter who was at the bedside. 02/19/2024 and 02/20/2024 and 02/21/2024
-
Recommend outpatient pulmonary follow-up in the short-term.
Patient is not sure how long she is going to stay. She usually lives in [place]. I will leave my information in the chart for short-term follow-up if she stays longer than a few weeks.
-
ok for DC today.
Sign off
Subjective Data
-
Date of Service:
Date of Service: February 21, 2024
Chief Complaint: Pulmonary Follow Up (Acute asthma exacerbation)
Subjective:
Feels better.
Less cough.
Minimal yellow phleghm production.
Denies SOB.
Review of Systems
General: Fever (n)
Cardiopulmonary: Dyspnea (improved) and Cough (improved)
GI: Abdominal Pain (n) and Nausea (n)
Objective Data
Data Reviewed
Vital Signs / I&O / Oxygen:
Vital Signs
Temp Pulse Resp BP Pulse Ox
98.0 F 81 16 150/86 92
02/21/24 07:18 02/21/24 07:44 02/21/24 07:30 02/21/24 07:44 02/21/24 07:18
Intake and Output
02/20/24 02/21/24 02/22/24
06:59 06:59 06:59
Intake Total 960 / 960 930 / 930
Balance 960 / 960 930 / 930
SaO2 92
Nasal Cannula flow liters per 94
minute
Physical Exam
General: Comfortable
HEENT: Normocephalic
Cardiovascular: S1-S2
Respiratory: Wheeze ( bilateral expiratory wheezing, bibasilar squeaks) and Non-Labored Respirations
GI: Soft and Non Distended
Neurology: Awake and No Motor Deficits
Labs/Micro/Reports
Lab Data
02/19/24 06:35
02/20/24 07:17
[2024-02-21 13:25] VITALS: BP 124/61
--- NOTE | 2024-02-21 13:36 | W.DCSUMMARY ---
Discharge Summary
Discharge Data
Date of Admission: 02/19/24
Date of Discharge: 02/21/24
-
Pending Results: No
Hospital Course
73 years old female presented with shortness of breath, wheezing and coughing. Patient had history of asthma and bronchiectasis. Clinical picture was suggestive of asthma exacerbation. Chest radiography showed chronic upper lobe predominant mild
bronchiectasis with no pneumonia. Patient was a resident of [place] and was recently seen by pulmonology there. Originally she was from [place] and moved to the many years ago, patient reported history of latent tuberculosis and received INH
treatment. Blood picture showed 5% eosinophils on the test. Patient was evaluated by pulmonary doctor, patient was given intravenous steroid with nebulizer treatment. She was given cough medicine. Patient started to improve. She did not need
oxygen. Her cough started to improve and she was able to ambulate without respiratory distress. She was given empiric Zithromax for bronchiectasis. Patient was discharged on tapering dose of prednisone. She was given prescription for nebulizer
treatment. Patient wanted to follow locally with pulmonary doctor. She was given contact information. Patient remained hemodynamically stable and was discharged in a stable condition.
Discharge Plan
-
Patient Disposition: Home (Routine Discharge)
Discharge Diagnosis/Procedures: Shortness of breath/cough: acute exacerbation of bronchiectasis/asthma.
Diet: As tolerated
Referrals:
Yao Burnett MD [Active] - in one to two weeks
UNKNOWN - PT DOES,NOT KNOW [Family Provider] -
Prescriptions:
New
azithromycin 250 mg Tablet
500 mg PO DAILY Qty: 3 0RF
benzonatate 100 mg Capsule
200 mg PO TIDPRN PRN (Reason: cough) Qty: 40 0RF
budesonide 0.5 mg/2 mL Suspension For Nebulization
0.5 mg inhalation R BID Qty: 60 0RF
albuterol sulfate 1.25 mg/3 mL solution for nebulization
1.25 mg inhalation QID PRN (Reason: shortness of breath or wheezing) Qty: 90 0RF
prednisone 10 mg tablet
40 mg PO DAILY Qty: 20 0RF
Rx Instructions:
40 mg for 2 days , 30 mg for 2 days,20 mg for 2 days then 10 mg for 2 days
nystatin 100,000 unit/mL suspension
1 ml PO BID Qty: 60 0RF
Continued
losartan 50 mg Tablet
50 mg PO DAILY
latanoprost 0.005 % Drops
1 drp BOTH EYES QPM
omeprazole 40 mg Capsule,Delayed Release(Dr/Ec)
40 mg PO DAILY
calcium carbonate 500 mg calcium (1,250 mg) Tablet
500 mg PO DAILY
albuterol sulfate 90 mcg/actuation Hfa Aerosol Inhaler
2 inh INHALATION R DAILY
cyclosporine [Restasis] 0.05 % Dropperette
1 drp BOTH EYES BID
cholecalciferol (vitamin D3) 25 mcg (1,000 unit) Tablet
25 mcg PO DAILY
mesalamine [Lialda] 1.2 gram Tablet,Delayed Release (Dr/Ec)
2.4 g PO DAILY
Discharge Orders:
Discharge Patient (As Directed); Ordered 02/21/24
Ordered By: Ramos Montoya
Discharge Date and Time
Print Language: BULGARIAN
== END 2024-02-21 14:25 | disposition home or self-care (01) | DRG 202 ==
LOC: 3 WEST ACU 08:12
PROVIDERS: Clinical Nurse Specialist Family Health; ADMITTING PHYSICIAN Internal Medicine; ATTENDING PHYSICIAN Internal Medicine; EMERGENCY PHYSICIAN Emergency Medicine; OTHER PHYSICIAN Internal Medicine Critical Care Medicine
DX: J45.901 Unspecified asthma with (acute) exacerbation (principal); J47.1 Bronchiectasis with (acute) exacerbation; K50.90 Crohn's disease, unspecified, without complications; I10 Essential (primary) hypertension; K21.9 Gastro-esophageal reflux disease without esophagitis; M19.90 Unspecified osteoarthritis, unspecified site; Z79.52 Long term (current) use of systemic steroids; Z79.899 Other long term (current) drug therapy; Z86.15 Personal history of latent tuberculosis infection; Z86.19 Personal history of other infectious and parasitic diseases; Z90.89 Acquired absence of other organs; Z90.710 Acquired absence of both cervix and uterus
CPT/HCPCS: 71046; 80048; 80053; 83880; 84145; 85025; 93005; 94640; 97166; 99285

== ENCOUNTER 2024-08-24 07:51 | Inpatient (IN) | payer OTHER, SELFPAY ==
[2024-08-24] VITALS (14 sets, daily range): BP systolic 108–160; BP diastolic 44–84; BMI 21.9; BMI 20.6
--- NOTE | 2024-08-24 03:32 | ED.GENMED ---
History of Present Illness
General
Chief Complaint: Breathing Problem
Source: patient
Exam Limitations: none
Time Seen by Provider: 08/24/24 03:19
Nursing documentation reviewed up to this point in time: agreed with
History of Present Illness
History of Present Illness:
This is a 74 y/o female with a pmh of bronchiectasis who presents to the ER today with concerns of difficulty breathing in the middle of the night. Patient is present in the ER with her daughter. Patient's history is limited due to her degree of
respiratory distress and is not able to talk in full sentences. Daughter provides most of history. Bree reports that patient previously lived in [place] but is living with daughter temporarily as patient has had progressive illness and
difficulty taking care of herself. She reports that patient has cough attacks with her bronchiectasis and reports that the past few nights, patient has awoken in the middle of the nnight gasping for air and coughing up a lot of mucus. These episodes
typically resolve with albuterol inhaler however this time, this did not help her symptoms. Patient also feels chest tightness. She denies fevers, chills, nausea, vomiting, abdominal pain.
Review of Systems
Review of Systems
All Other Systems: ROS reviewed and negative except as documented in HPI and ROS
Phy Exam
Physical Exam
Physical Exam:
General: Patient is in acute respiratory distress
Skin: Warm and dry, no rashes or lesions
Head: Normocephalic, atraumatic
Eyes: Sclera non-icteric. EOMs intact.
Cardiac: Tachycardia otherwise regular rhythm, no murmurs
Peripheral Vascular: No lower extremity swelling or edema
Pulm: Tachypnea, pursed lip breathing, audible wheezing
Abdomen: No abdominal tenderness to palpation
Neuro: CN II-XII intact, no focal neurologic deficits.
Psychiatric: Appropriate mood and affect.
Scores
Heart Failure Risk
Heart Failure Risk Score: Not Applicable
Course
Orders/Labs/Results
Orders:
Orders
08/24/24 03:07
Electrocardiogram (*1) Urgent
Reason for Study: Shortness of Breath
CR Chest - 2 Views Urgent
Comment:
Reason For Exam: sob
Oxygen Therapy [O2 Therapy] [RESP] Urgent
Nasal Cannula Liter Flow: 3 LPM
Titrate/Wean O2 to maintain O2 sat greater than (%): 95
08/24/24 03:08
EKG- Treatment ONCE
08/24/24 03:17
Complete Blood Count/With Diff Urgent
Comprehensive Metabolic Panel Urgent
Ipratropium/Albuterol Sulfate [Duoneb] 3 ml INH R NOW STA
08/24/24 03:18
Dexamethasone Sod Phosphate [Decadron] 10 mg IV NOW STA
Ipratropium/Albuterol Sulfate [Duoneb] 3 ml INH R NOW ONE
08/24/24 03:19
COVID-19 Antigen Urgent
Source: Nasal Swab
NT-proBNP Urgent
Troponin I Urgent
Influenza A+B Rapid Molecular Urgent
[place] Source: Nasal Swab
Specimen Description:
08/24/24 03:57
Ipratropium/Albuterol Sulfate [Duoneb] 3 ml INH R NOW STA
08/24/24 04:09
0.9% Sodium Chloride 500 ml [Nss] 500 ml IV BOLUS
08/24/24 04:55
CT Chest PE Study Urgent
Comment:
Reason For Exam: right sided infiltrate, hypoxia
08/24/24 06:39
Admit/Transfer Patient As Directed
Co-Sign Provider:
Level of Care: Inpatient admission
Assign to:: Medical/Surgical
Physician / Group: Jm
Diagnosis: RLL Pneumonia, Bronchiectasis
Reason for Hospitalization: RLL Pneumonia, Bronchiectasis
Expected length of stay greater than two midnights?: Yes
ELOS- Estimated Length of Stay in days: 3
I certify the patient meets the requirements for IP care: Yes
08/24/24 06:41
PRN Pain Medication Management As Directed
May give lesser potent ordered pain med per pt: Yes
preference::
Protocol:: Medication orders for pain may be administered in a
manner that supports deferring to patient preference
when the pt is:
- Requesting an ordered lesser potent pain medication.
Least to most potent pain medications are defined
as: acetaminophen < NSAID < tramadol < opioids
(morphine, oxycodone, hydromorphone).
- Requesting a lesser dose of the same medication IF
ORDERED.
- Requesting a less intrusive route of administration
if both routes are prescribed by the provider (PO <
IV).
08/24/24 06:44
Code Status As Directed
Resuscitation Status: Full Code
Abnormal Lab Results
08/24/24
03:17
Absolute Monos (auto) 0.8 H 10^3/uL
(0.1-0.6)
Lymphocytes % 19.2 L %
(20.5-51.1)
Eosinophils % 7.5 H %
(0-6)
Carbon Dioxide 31 H mmol/L
(22-30)
BUN 20 H mg/dl
(7-17)
Glucose 111 H mg/dl
(70-99)
08/24/24 03:17
08/24/24 03:17
Vital Signs
Initial and Last Documented VS:
Initial Vital Signs
Temp Pulse Resp BP Pulse Ox
97.1 F 100 32 144/80 91
08/24/24 03:01 08/24/24 03:01 08/24/24 03:01 08/24/24 03:01 08/24/24 03:01
Last Documented Vital Signs
Temp Pulse Resp BP Pulse Ox
97.1 F 94 28 122/59 92
08/24/24 03:01 08/24/24 07:00 08/24/24 07:00 08/24/24 07:00 08/24/24 07:00
MDM/Problems Addressed
Differential Diagnosis Includes:
ddx include bronchiectasis/asthma exacerbation, COVID-19, influenza, pneumonia, hf
MDM/Problems Addressed:
This is a 74 y/o female with a pmh of bronchiectasis who presents to the ER today with concerns of difficulty breathing in the middle of the night. She represents to the ER in acute respiratory distress. Mildly hypoxic on RA but diffuse wheezing ans
increased RR. No home O2. Placed on 2L. CXR shows right wedge shaped opacity, ddx include pneumonia vs pulm infarct vs bronchiectasis changes. Decadron started. CT pending. Patient referred for admission, case reviewed with my attending
*Critical Care Note
Total Time (30-74mins, 75-104mins- exclusive of procedures): Not Applicable
ED Attending Note
-
Portions of this chart may have been created with voice recognition software.� Occasional wrong word or��sound alike� substitutions may have occurred due to the inherent limitations of voice recognition software.
Discharge Plan
Departure
Patient Disposition: Admit
Date of Disposition: 08/24/24
Time of Disposition: 06:12
Admit to: Med/Surg
Presentation/result/management discussed w/ accepting MD/DO: Hospitalist
Condition: Fair
Discharge Problem:
Acute respiratory distress, Bronchiectasis with (acute) exacerbation
Prescriptions:
No Action
losartan 50 mg Tablet
50 mg PO DAILY
latanoprost 0.005 % Drops
1 drp BOTH EYES QPM
omeprazole 40 mg Capsule,Delayed Release(Dr/Ec)
40 mg PO DAILY
calcium carbonate 500 mg calcium (1,250 mg) Tablet
1,000 mg PO DAILY
albuterol sulfate 90 mcg/actuation Hfa Aerosol Inhaler
2 inh INHALATION R DAILY
cyclosporine [Restasis] 0.05 % Dropperette
1 drp BOTH EYES BID
cholecalciferol (vitamin D3) 25 mcg (1,000 unit) Tablet
25 mcg PO DAILY
mesalamine [Lialda] 1.2 gram Tablet,Delayed Release (Dr/Ec)
1.4 g PO BID
albuterol sulfate 1.25 mg/3 mL solution for nebulization
1.25 mg inhalation QID PRN (Reason: shortness of breath or wheezing) Qty: 90 0RF
Stiolto Respimat 2.5-2.5 mcg/actuation Mist
2 puff INHALATION DAILY
Referrals:
PRIVATE,PHYSICIAN [Family Provider] -
Discharge Date and Time
Print Language: DUTCH
[2024-08-24] MEDS: DUONEB 3 ML INH ×5 (03:33→19:58)
[2024-08-24] MEDS: DECADRON 10 MG IV (03:34)
[2024-08-24 03:39] LABS: % Basophils 0.6 % (0-2); % Eosinophils 7.5 % (0-6); % Immature Granulocytes 0.2 % (0-0.5); % Lymphocytes 19.2 % (20.5-51.1); % Monocytes 8.8 % (1.7-9.3); % Neutrophils 63.7 % (42.2-75.2); Absolute Basophils 0.1 10^3/uL (0-0.2); Absolute Eosinophils 0.7 10^3/uL (0-0.7); Absolute Lymphocytes 1.7 10^3/uL (1.2-3.4); Absolute Monocytes 0.8 10^3/uL (0.1-0.6); Absolute Neutrophils 5.8 10^3/uL (1.4-6.5); Hemoglobin 14.3 g/dL (12.0-16.0); Mean Corpuscular Hgb 29.9 pg (27.0-31.0); Mean Corpuscular Volume 87.7 fL (81.0-99.0); Mean Platelet Volume 9.3 fL (7.4-10.4); Nucleated Red Blood Cells % 0 %; Platelet Count 287 10^3/uL (130-400); Red Blood Cell Count 4.79 10^6/uL (4.20-5.40); Red Cell Dist. Width 12.3 % (11.5-14.5)
[2024-08-24 03:50] LABS: ALT (SGPT) 23 U/L (0-35); AST (SGOT) 31 U/L (14-36); Albumin 4.5 g/dl (3.5-5.0); Alkaline Phosphatase 121 U/L (38-126); Blood Urea Nitrogen 20 mg/dl (7-17); Calcium 9.2 mg/dl (8.4-10.2); Carbon Dioxide 31 mmol/L (22-30); Chloride 100 mmol/L (98-107); Estimated Creatinine Clearance 52 ml/min; Glucose 111 mg/dl (70-99); Potassium 3.8 mmol/L (3.5-5.1); Sodium 138 mmol/L (135-145); Total Bilirubin 0.6 mg/dl (0.2-1.3); Total Protein 8.2 g/dl (6.3-8.2); eGFR > 60.00
[2024-08-24 03:55] LABS: COVID-19 Antigen Negative (Negative)
[2024-08-24 04:00] LABS: NT-proBNP 219 pg/ml; Troponin I 0.014 ng/ml
[2024-08-24] MEDS: NSS 500 IV (04:15)
--- NOTE | 2024-08-24 06:46 | HPS.HSE ---
Family Physician
-
Family Physician: PHYSICIAN PRIVATE
Chief Complaint
-
SOB
History of Present Illness
Patient is a 74y F with PMH significant for bronchiectasis, ulcerative colitis and history of TB s/p INH treatment who presents to ED complaining of SOB. Patient states that she has been having issues for several days with SOB at night. She
feels fairly well during the day, but wakes in the night feeling very SOB and gasping for air. She has mild, minimally productive cough. No fevers / chills. No known sick contacts. Patient denies any GI or complaints.
Patient woke this evening around midnight feeling SOB. She took her albuterol inhaler with improvement in her symptoms and was able to fall back to sleep.
She woke again around 2 AM and felt extremely SOB. On this occasion she felt no improvement at all with her albuterol and presented to the ED for further evaluation.
At the time of my examination, patent appears comfortable on supplemental O2. She does not have chronic O2 at home.
Medical History
Past Medical History
Past Medical History: Reports Other
Additional Past Medical History:
Bronchiectasis
Ulcerative Colitis
Hypertension
Tuberculosis s/p INH
Osteoporosis
GERD
Past Surgical History: Reports Other
Additional Past Surgical History:
Hysterectomy
Cholecystectomy
Appendectomy
R Wrist Surgery
Hernia Repair
Social History
Tobacco: Non-smoker
Alcohol: Occasional
Drug: None
Living: With Family
Family History
Family History: Not pertinent
Allergies / Home Medications
Allergies reflects when Allergies were last updated in [employer].
Home Medications with original date entered in [employer]
Allergy/Medication List:
Allergies
Allergy/AdvReac Type Severity Reaction Status Date / Time
clindamycin Allergy Unknown Verified 08/24/24 03:03
codeine Allergy Unknown Verified 08/24/24 03:03
morphine Allergy Unknown Verified 08/24/24 03:03
Home Medications
albuterol sulfate 90 mcg/actuation aerosol inhaler 2 inh inhalation R DAILY Lung/Breathing Issues 02/18/24
calcium carbonate 1,000 mg PO DAILY Supplement 02/18/24
cholecalciferol (vitamin D3) 25 mcg (1,000 unit) tablet 25 mcg PO DAILY Supplement 02/18/24
cyclosporine 0.05 % eye drops in a dropperette (Restasis) 1 drp BOTH EYES BID Eye Condition 02/18/24
latanoprost 0.005 % eye drops 1 drp BOTH EYES QPM Eye Condition 02/18/24
losartan 50 mg tablet 50 mg PO DAILY Blood Pressure 02/18/24
mesalamine 1.2 gram tablet,delayed release (Lialda) 1.4 g PO BID Gastrointestinal Issue 02/18/24
omeprazole 40 mg capsule,delayed release 40 mg PO DAILY Gastrointestinal Issue 02/18/24
albuterol sulfate 1.25 mg/3 mL solution for nebulization 1.25 mg (3 mL) inhalation QID PRN shortness of breath or wheezing #90 mL 02/21/24
tiotropium 2.5 mcg-olodaterol 2.5 mcg/actuation mist for inhalation (Stiolto Respimat) 2 puff inhalation DAILY 08/24/24
Review of Systems
-
History Source: Patient
A 12 point ROS was completed and negative except as noted: Yes
Constitutional: Reports Fatigue; Denies Fever or Chills
EENT: Denies Sore Throat
Respiratory: Reports Cough; Denies Hemoptysis
Cardiac: Denies Chest Pain or Palpitations
Abdomen/GI: Denies Abdominal Pain, Nausea, Vomiting or Diarrhea
: Denies Dysuria or Frequency
Musculoskeletal: Denies Joint Pain or Edema
Neurological: Denies Dizzy or Headache
Psych: Denies Depression or Anxiety
Physical Exam
Vital Signs
Vital Signs
Temp Pulse Resp BP Pulse Ox
97.1 F 98 26 109/52 95
08/24/24 03:01 08/24/24 06:13 08/24/24 06:13 08/24/24 06:13 08/24/24 06:17
Physical Exam
General: Other (74y F in no acute distress.)
HEENT: Other (Dry MM. Neck supple.)
Respiratory: Other (Scattered coarse breath sounds and wheezes throughout all lung reynoso.)
Cardiac: S1/S2 and Regular Rhythm; No Murmur
GI: Soft, Non Tender, Non Distended and Normal Bowel Sounds
Musculoskeletal: No Clubbing, No Cyanosis and No Edema
Neuro: AO x 3
Laboratory Results
-
08/24/24 03:17
08/24/24 03:17
Laboratory Results
Total Bilirubin 0.6 mg/dl (0.2-1.3) 08/24/24 03:17
AST 31 U/L (14-36) 08/24/24 03:17
ALT 23 U/L (0-35) 08/24/24 03:17
Alkaline Phosphatase 121 U/L (38-126) 08/24/24 03:17
Troponin I 0.014 ng/ml 08/24/24 03:19
Impression/Plan
-
A/P: Patient is a 74y F with PMH significant for bronchiectasis and hypertension who presents to ED complaining of SOB.
Bronchiectasis
RLL Pneumonia
Paroxysmal Nocturnal Dyspnea
- Admit for further evaluation and treatment.
- CT scan done in the ED shows R base consolidation / pneumonia - though no fever, leukocytosis, etc.
- Cover with IV abx for CAP for now.
- IV steroids, nebs, O2 support.
- Pulmonary evaluation for additional recommendations.
- ? home O2 evaluation / nocturnal O2 assessment.
- Follow for clinical improvement.
Benign Hypertension
- Stable. Continue losartan with holding parameters.
Ulcerative Colitis
- Stable - no acute / active GI symptoms at present.
- Patient reports about 20 years or so of chronic steroid therapy in the past for colitis.
- Has developed multiple complications including osteoporosis, etc.
- Continue Lialda.
- Follow for any new symptoms.
GERD
- Stable. Continue PPI.
DVT Prophylaxis: Lovenox
Code Status: Full
--- NOTE | 2024-08-24 11:14 | CM ---
CM met with pt bedside
Pt from [place] and currently staying with dtr in [facility] since July 2024
Pt is indep with her ADLs, no DMEs, drives+ short distances
Is not on home O2
No local PCP, has a PCP in [place]
Rx- [facility]
Call with dtr who confirmed PLOF
As pt resides alone in [place], they are looking into a LT plan, whether permanent move to [place] vs [place] with services
Discharge Disposition- return to dtr's home, watch for O2 needs
--- NOTE | 2024-08-24 12:42 | W.PN.HOSP.TC ---
Today's Communication/Plan
-
Monitor vital signs see plan
nebs,steroids,abx
Nonbillable note
Assessment / Plan
Assessment / Plan
General: Other (74y F in no acute distress.)
HEENT: Other (Dry MM. Neck supple.)
Respiratory: Other (Scattered coarse breath sounds and wheezes throughout all lung reynoso.)
Cardiac: S1/S2 and Regular Rhythm; No Murmur
GI: Soft, Non Tender, Non Distended and Normal Bowel Sounds
Musculoskeletal: No Edema
Neuro: AO x 3
Bronchiectasis
RLL Pneumonia
Paroxysmal Nocturnal Dyspnea
- CT scan done in the ED shows R base consolidation / pneumonia - though no fever, leukocytosis, etc.
- Cover with IV abx for CAP for now.
- IV steroids, nebs, O2 support.
- Pulmonary evaluation for additional recommendations.
- ? home O2 evaluation / nocturnal O2 assessment.
- Follow for clinical improvement.
Benign Hypertension
- Stable. Continue losartan with holding parameters.
Ulcerative Colitis
- Stable - no acute / active GI symptoms at present.
- Patient reports about 20 years or so of chronic steroid therapy in the past for colitis.
- Has developed multiple complications including osteoporosis, etc.
- Continue Lialda.
- Follow for any new symptoms.
GERD
- Stable. Continue PPI.
DVT Prophylaxis: Lovenox
Code Status: Full
Anticipated Discharge: > 48 hours
Subjective/Interval History
-
Date of Service: August 24, 2024
Denies pain
Objective Data
-
Labs:
Laboratory Results
08/24/24
03:17
WBC 9.0
Hgb 14.3
Hct 42.0
Plt Count 287
Sodium 138
Potassium 3.8
Chloride 100
Carbon Dioxide 31 H
BUN 20 H
Creatinine 0.7
Glucose 111 H
Calcium 9.2
Total Bilirubin 0.6
AST 31
ALT 23
Alkaline Phosphatase 121
Vital Signs:
Vital Signs
Temp Pulse Resp BP Pulse Ox
97.1 F 86 29 111/71 94
08/24/24 03:01 08/24/24 11:00 08/24/24 11:00 08/24/24 11:00 08/24/24 11:00
I&O
08/23/24 08/24/24 08/25/24
06:59 06:59 06:59
Intake Total 500 / 500
Balance 500 / 500
--- NOTE | 2024-08-24 14:30 | CON.PUL ---
Consultation
Consultation Request
Date/Time Consultation Requested: 08/24/2024
Date/Time Consultation Performed: 08/24/2024
Requesting Provider: Willy Callahan
Performing Provider: Shiloh Villanueva
Reason for Consultation: Bronchiectasis
Medical History
-
History of Present Illness:
Patient is a 74y F with PMH significant for bronchiectasis, ulcerative colitis and history of TB s/p INH treatment who presents to ED complaining of SOB. Patient states that she has been having issues for several days with SOB at night. She
feels fairly well during the day, but wakes in the night feeling very SOB and gasping for air. She has mild, minimally productive cough. No fevers / chills. No known sick contacts. Patient denies any GI or complaints. Patient reports
increased symptoms particularly around cold weather.
Patient woke this evening around midnight feeling SOB. She took her albuterol inhaler with improvement in her symptoms and was able to fall back to sleep.
She woke again around 2 AM and felt extremely SOB. On this occasion she felt no improvement at all with her albuterol and presented to the ED for further evaluation.
Workup in the emergency room showed evidence of pneumonia along with chronic bronchiectasis. Pulmonary consultation was requested for further input.
She is originally from [place], history of latent TB status post INH many years ago. (about 30 years)
Past Medical History. Ulcerative colitis, inflammatory bowel disease, bronchiectasis, latent TB treated about 30 years ago.
Past Medical History: 4
Social History
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
Alcohol: None
Family History
Family History: Reviewed & Not Pertinent
Allergies / Home Medications
Allergies
Allergy/AdvReac Type Severity Reaction Status Date / Time
clindamycin Allergy Unknown Verified 08/24/24 03:03
codeine Allergy Unknown Verified 08/24/24 03:03
morphine Allergy Unknown Verified 08/24/24 03:03
Home Medications
�Medication �Instructions �Recorded �Confirmed �Last Taken �Type
albuterol sulfate 90 mcg/actuation 2 inh inhalation R DAILY 02/18/24 08/24/24 02/18/24 History
aerosol inhaler Lung/Breathing Issues
calcium carbonate 1,000 mg PO DAILY Supplement 02/18/24 08/24/24 02/18/24 History
cholecalciferol (vitamin D3) 25 25 mcg PO DAILY Supplement 02/18/24 08/24/24 02/18/24 History
mcg (1,000 unit) tablet
cyclosporine 0.05 % eye drops in a 1 drp BOTH EYES BID Eye Condition 02/18/24 08/24/24 02/18/24 History
dropperette (Restasis)
latanoprost 0.005 % eye drops 1 drp BOTH EYES QPM Eye Condition 02/18/24 08/24/24 02/17/24 History
losartan 50 mg tablet 50 mg PO DAILY Blood Pressure 02/18/24 08/24/24 02/18/24 History
mesalamine 1.2 gram tablet,delayed 1.4 g PO BID Gastrointestinal Issue 02/18/24 08/24/24 02/18/24 History
release (Lialda)
omeprazole 40 mg capsule,delayed 40 mg PO DAILY Gastrointestinal 02/18/24 08/24/24 02/18/24 History
release Issue
albuterol sulfate 1.25 mg/3 mL 1.25 mg (3 mL) inhalation QID PRN 02/21/24 08/24/24 Unknown Rx
solution for nebulization shortness of breath or wheezing
#90 mL
tiotropium 2.5 mcg-olodaterol 2.5 2 puff inhalation DAILY 08/24/24 08/24/24 Unknown History
mcg/actuation mist for inhalation
(Stiolto Respimat)
Review of Systems
-
Hematologic/Lymphatic: Other (All 14 systems reviewed and negative except as stated above in the history of present illness.)
Vitals / Labs / Diagnostic Testing
Vital Signs
Temp Pulse Resp BP Pulse Ox
98.3 F 99 20 160/84 96
08/24/24 14:15 08/24/24 14:15 08/24/24 14:15 08/24/24 14:15 08/24/24 14:15
Lab Data
08/24/24 03:17
08/24/24 03:17
Microbiology
08/24/24 03:19 Nasal Swab Influenza Types A & B (YOSEPH) - Final
Negative for Influenza A & B, NAAT
Negative results must be combined with clinical observations
and patient history.
Nucleic Acid Amplification test (NAAT)performed on the
[employer] platform.
Diagnostic Testing:
Physical Exam
-
HEENT: Normocephalic
Cardiovascular: S1/S2
Respiratory: Wheeze (Bilateral diffuse wheezing) and Rhonchi
GI: Soft and Non Distended
Neurology: Awake
Skin: Warm
General: Comfortable
Assessment
-
#1. Acute Pneumonia. Predominantly in the superior segment of right lower lobe.
-Continue ceftriaxone and doxycycline
-Follow-up sputum cultures
-Influenza and COVID screen is negative
-Check Legionella and pneumococcal antigen
#2. Suspect Acute Asthma exacerbation. Patient's symptoms are very suggestive of underlying hyperreactive airway disease. She reports increased symptom at nights, exacerbated by cold weather with cough, wheezing and mucous plug expectoration.
Positive family history of asthma. Also noted to have eosinophilia.
-Considering concomitant bronchiectasis and suspected asthma, need to rule out ABPA, check IgE level
-Agree with IV steroids, Solu-Medrol 40 mg daily
-Continue DuoNeb 4 times daily, add budesonide nebulized twice a day
-Patient will need inhaled corticosteroids at discharge
-Needs pulmonary function testing and 6-minute walk test as outpatient
#3. H/O Bronchiectasis. Patient reports h/o latent TB s/p treatment 6 months ago. Upper lobe scarring could be related to prior infections. Underlying IBD also increased risk of bronchiectasis. Need to evaluate for other cause of Bronchiectasis, can
be pursued as out patient (Ig levels, HIV, Alpha 1 AT level etc.). At home, patient takes albuterol and hypertonic saline 3 times daily for airway clearance.
-Eosinophil count elevated
-Check IgE level, if elevated will screen for Aspergillus Ab
-Check AFB to evaluate for MAC
-Continue Airway clearance, start 3% Sodium Chloride nebulized q 12 hrs
-Flutter valve, depending on clinical response might need vest therapy
-Patient follows up with a C Engineer in [place].
#4. h/o latent TB, treated about 30 years ago. 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
-Current presentation is not suggestive of typical active tuberculosis
-Will check sputum for AFB stain and culture more for possible MAC infection
l time spent on this consultation/encounter __65__ minutes which includes review of history, physical exam, medications, laboratory data, personal review of imaging, extensive review of outpatient records, discussion with care team and respiratory
therapy.
Data:
CT Chest 08/2024: There is no CT evidence of pulmonary embolism
There is airspace disease in the superior segment of the right lower lobe. There is airspace disease involving both upper lobes with small cystic foci and bronchial wall thickening. There is scarring in the right apex. There is bronchiectasis in
both lower lobes.
There is no enlarged hilar or mediastinal adenopathy. There is no aortic aneurysm or dissection. There is no pericardial effusion.
The right lobe of the thyroid is larger than the left with low-attenuation foci seen in both lobes.
There is no adrenal mass.
There is an S-shaped scoliosis with degenerative changes in the thoracic spine
[2024-08-24] MEDS: PROTONIX 40 MG PO (15:29)
[2024-08-24] MEDS: VITAMIN D3 (cholecalciferol) 25 MCG PO (15:29)
[2024-08-24] MEDS: RESTASIS 0.05% OPHTHALMIC EMULSION 1 DROPS BOTH EYES ×2 (15:29→20:54)
[2024-08-24] MEDS: COZAAR 50 MG PO (15:29)
[2024-08-24] MEDS: VIBRAMYCIN 100 MG PO ×2 (15:29→20:54)
[2024-08-24] MEDS: STERILE WATER FOR INJECTION 10 ML IV (15:29)
[2024-08-24] MEDS: FLUSH (NSS) 1 FLUSH IV ×2 (15:30→18:25)
[2024-08-24] MEDS: ROCEPHIN 1000 MG IV (15:30)
[2024-08-24] MEDS: DUONEB INH (15:44)
--- NOTE | 2024-08-24 16:45 | PTCARENOTE ---
Received pt form ER via stretcher, accompanied by ER staff. Pt AAO x3, GOMES well, able to ambulate to bed with minimal assistance; no c/o weakness/dizziness. VSS. On nc 1 lpm- pt with (+) FRANK; I/E wheezing all lobes; occ dry, non-productive cough.
Abd soft, rounded, to start regular diet. Pt voided in BR upon arrival to unit. Afebrile; skin W/D/I. Oriented to 4east, currently resting comfortably. Will continue to monitor.
[2024-08-24] MEDS: LOVENOX 40 MG SC (18:24)
[2024-08-24] MEDS: SOLU-MEDROL PF 40 MG IV (18:24)
[2024-08-24] MEDS: XALATAN OPHTHALMIC SOLUTION 1 DROP BOTH EYES (18:26)
[2024-08-24] MEDS: SODIUM CHLORIDE 3% FOR INHALATION 1 VIAL INH (19:58)
[2024-08-24] MEDS: PULMICORT 0.5 MG INH (19:58)
[2024-08-25] MEDS: VENTOLIN NEBULES 2.5 MG INH (05:25)
[2024-08-25] MEDS: PULMICORT 0.5 MG INH ×2 (07:22→19:07)
[2024-08-25] MEDS: SODIUM CHLORIDE 3% FOR INHALATION 1 VIAL INH ×2 (07:22→19:07)
[2024-08-25] MEDS: DUONEB 3 ML INH ×4 (07:22→19:07)
[2024-08-25 07:35] VITALS: BP 127/60
[2024-08-25 07:51] LABS: Hematocrit 36.2 % (37.0-47.0); Hemoglobin 12.6 g/dL (12.0-16.0); Mean Corp Hgb Conc. 34.8 g/dL (33.0-37.0); Mean Corpuscular Hgb 30.7 pg (27.0-31.0); Mean Corpuscular Volume 88.1 fL (81.0-99.0); Mean Platelet Volume 9.8 fL (7.4-10.4); Platelet Count 265 10^3/uL (130-400); Red Blood Cell Count 4.11 10^6/uL (4.20-5.40); Red Cell Dist. Width 12.4 % (11.5-14.5); White Blood Cell Count 8.3 10^3/uL (4.8-10.8)
[2024-08-25 08:08] LABS: Blood Urea Nitrogen 19 mg/dl (7-17); Calcium 9.3 mg/dl (8.4-10.2); Carbon Dioxide 26 mmol/L (22-30); Chloride 105 mmol/L (98-107); Estimated Creatinine Clearance 60 ml/min; Glucose 113 mg/dl (70-99); Sodium 138 mmol/L (135-145); eGFR > 60.00
[2024-08-25] MEDS: COZAAR 25 MG PO (10:03)
[2024-08-25] MEDS: VIBRAMYCIN 100 MG PO ×2 (10:03→19:55)
[2024-08-25] MEDS: PROTONIX 40 MG PO (10:03)
[2024-08-25] MEDS: VITAMIN D3 (cholecalciferol) 25 MCG PO (10:03)
[2024-08-25] MEDS: SOLU-MEDROL PF 40 MG IV (10:04)
[2024-08-25] MEDS: RESTASIS 0.05% OPHTHALMIC EMULSION 1 DROPS BOTH EYES ×2 (10:04→17:25)
--- NOTE | 2024-08-25 10:32 | W.PN.PUL3 ---
Today's Communication / Plan
-
- Add montelukast 10 mg nightly
- Continue IV steroids, DuoNebs and budesonide along with airway clearance
Assessment
-
Patient is a 74y F with PMH significant for bronchiectasis, ulcerative colitis and history of TB s/p INH treatment who presents to ED complaining of SOB. Patient states that she has been having issues for several days with SOB at night. She
feels fairly well during the day, but wakes in the night feeling very SOB and gasping for air. She has mild, minimally productive cough. No fevers / chills. No known sick contacts. Patient denies any GI or complaints. Patient reports
increased symptoms particularly around cold weather.
Patient woke this evening around midnight feeling SOB. She took her albuterol inhaler with improvement in her symptoms and was able to fall back to sleep.
She woke again around 2 AM and felt extremely SOB. On this occasion she felt no improvement at all with her albuterol and presented to the ED for further evaluation.
Workup in the emergency room showed evidence of pneumonia along with chronic bronchiectasis. Pulmonary consultation was requested for further input.
#1. Acute Pneumonia. Predominantly in the superior segment of right lower lobe.
-Continue ceftriaxone and doxycycline
-Follow-up sputum cultures
-Influenza and COVID screen is negative
-Negative Legionella and pneumococcal antigen
#2. Acute Asthma exacerbation. Patient's symptoms are very suggestive of underlying hyperreactive airway disease. She reports increased symptom at nights, exacerbated by cold weather with cough, wheezing and mucous plug expectoration. Positive
family history of asthma. Also noted to have eosinophilia.
-Considering concomitant bronchiectasis and suspected asthma, need to rule out ABPA, await IgE level
-Continue IV Solu-Medrol 40 daily for now
-Continue DuoNeb 4 times daily with budesonide nebulized twice a day
-Patient will need inhaled corticosteroids at discharge
-Needs pulmonary function testing and 6-minute walk test as outpatient
-Add montelukast 10 mg nightly
#3. H/O Bronchiectasis. Patient reports h/o latent TB s/p treatment 6 months ago. Upper lobe scarring could be related to prior infections. Underlying IBD also increased risk of bronchiectasis. Need to evaluate for other cause of Bronchiectasis, can
be pursued as out patient (Ig levels, HIV, Alpha 1 AT level etc.). At home, patient takes albuterol and hypertonic saline 3 times daily for airway clearance.
-Eosinophil count elevated
-Check IgE level, if elevated will screen for Aspergillus Ab
-Await AFB to evaluate for MAC
-Continue Airway clearance, with3% Sodium Chloride nebulized q 12 hrs
-Flutter valve, depending on clinical response might need vest therapy
-Patient follows up with a Molding Fitter in [place].
#4. h/o latent TB, treated about 30 years ago. 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
-Current presentation is not suggestive of typical active tuberculosis
-Will check sputum for AFB stain and culture more for possible MAC infection
Updated patient's daughter via phone.
l time spent on this consultation/encounter __32__ minutes which includes review of history, physical exam, medications, laboratory data, personal review of imaging, extensive review of outpatient records, discussion with care team and respiratory
therapy.
Data:
CT Chest 08/2024: There is no CT evidence of pulmonary embolism
There is airspace disease in the superior segment of the right lower lobe. There is airspace disease involving both upper lobes with small cystic foci and bronchial wall thickening. There is scarring in the right apex. There is bronchiectasis in
both lower lobes.
There is no enlarged hilar or mediastinal adenopathy. There is no aortic aneurysm or dissection. There is no pericardial effusion.
The right lobe of the thyroid is larger than the left with low-attenuation foci seen in both lobes.
There is no adrenal mass.
There is an S-shaped scoliosis with degenerative changes in the thoracic spine
Subjective Data
-
Date of Service:
Date of Service: August 25, 2024
Subjective:
Patient subjectively improving, had some dyspnea overnight.
Review of Systems
Genitourinary: Other (All 14 systems reviewed and negative except as stated above in the history of present illness.)
Objective Data
Data Reviewed
Vital Signs / I&O / Oxygen:
Vital Signs
Temp Pulse Resp BP Pulse Ox
98.0 F 96 16 127/60 91
08/25/24 07:35 08/25/24 07:35 08/25/24 07:35 08/25/24 07:35 08/25/24 07:35
Intake and Output
08/24/24 08/25/24 08/26/24
06:59 06:59 06:59
Intake Total 500 / 500 840 / 840
Output Total 100 / 100
Balance 500 / 500 740 / 740
SaO2 91
Nasal Cannula flow liters per 2
minute
Physical Exam
General: Comfortable
HEENT: Normocephalic
Cardiovascular: S1-S2 and Regular Rhythm
Respiratory: Wheeze (Improving wheezing bilaterally.)
GI: Soft and Non Distended
Neurology: Awake
Skin: Warm
Labs/Micro/Reports
Lab Data
08/25/24 06:44
08/25/24 06:44
Microbiology
08/24/24 15:57 Urine Legionella Urinary Antigen - Final
Negative for Legionella pneumophila Serogroup 1 antigen.
A negative result does not rule out the possiblity of
Legionella infection due to other serogroups or species of
Legionella. Clinical correlation is recommended.
08/24/24 15:57 Urine Streptococcus pneumoniae Antigen (M - Final
Negative for Streptococcus pneumoniae antigen.
A negative result does not exclude infection with
Streptococcus pneumoniae. Clinical correlation is
recommended.
08/24/24 03:19 Nasal Swab Influenza Types A & B (YOSEPH) - Final
Negative for Influenza A & B, NAAT
Negative results must be combined with clinical observations
and patient history.
Nucleic Acid Amplification test (NAAT)performed on the
[employer] platform.
--- NOTE | 2024-08-25 11:58 | W.PN.HOSP.TC ---
Today's Communication/Plan
-
Monitor vital signs
see plan
Wean oxygen as tolerated
Continue with nebs
Continue with IV steroids
Discussed with pulmonary
Assessment / Plan
Assessment / Plan
General: Other (74y F in no acute distress.)
HEENT: Anicteric, pink conjunctiva
Respiratory: Wheezes bilateral
Cardiac: S1/S2 and Regular Rhythm; No Murmur
GI: Soft, Non Tender, Non Distended and Normal Bowel Sounds
Musculoskeletal: No Edema
Neuro: AO x 3
Acute hypoxic respiratory insufficiency likely secondary to pneumonia and asthma exacerbation
Bronchiectasis
RLL Pneumonia
Paroxysmal Nocturnal Dyspnea
- CT scan done in the ED shows R base consolidation / pneumonia - though no fever, leukocytosis, etc.
Continue with IV antibiotic
Continue with IV steroids, nebs
Wean oxygen as tolerated
Will need home O2 evaluation prior to discharge
- Follow for clinical improvement
Pulmonary added Singulair
Benign Hypertension
- Stable. Continue losartan with holding parameters.
Ulcerative Colitis
- Stable - no acute / active GI symptoms at present.
- Patient reports about 20 years or so of chronic steroid therapy in the past for colitis.
- Has developed multiple complications including osteoporosis, etc.
- Continue Lialda.
- Follow for any new symptoms.
GERD
- Stable. Continue PPI.
DVT Prophylaxis: Lovenox
Code Status: Full
Anticipated Discharge: 24 - 48 hours
Subjective/Interval History
-
Date of Service: August 25, 2024
denies pain
Objective Data
-
Labs:
Laboratory Results
08/25/24
06:44
WBC 8.3
Hgb 12.6
Hct 36.2 L
Plt Count 265
Sodium 138
Potassium 4.0
Chloride 105
Carbon Dioxide 26
BUN 19 H
Creatinine 0.6
Glucose 113 H
Calcium 9.3
Vital Signs:
Vital Signs
Temp Pulse Resp BP Pulse Ox
98.0 F 90 14 127/60 91
08/25/24 07:35 08/25/24 11:10 08/25/24 11:10 08/25/24 07:35 08/25/24 07:35
I&O
08/24/24 08/25/24 08/26/24
06:59 06:59 06:59
Intake Total 500 / 500 840 / 840
Output Total 100 / 100
Balance 500 / 500 740 / 740
--- NOTE | 2024-08-25 12:56 | CM ---
CM following re: discharge planning.
Reviewed pt's chart, met with pt.
Pt stated she just moved from [place] to [place] and will stay in daughter's house at [address] [place] [id number].
Pt described herself as independent in all areas [employer]. Pt brought to me her concerns regarding having difficulties to breath at night, currently on 2L [place] and pt stated she thinks she will need home Oxygen. CM discussed it with RT.
Pt described herself as independent in all areas [employer], does not use any mobile devices.
D/C plan: home with possible home oxygen vs nocturnal oxygen if qualified.
CM will follow with discharge plan updates as hospitalization progresses
[2024-08-25] MEDS: ROCEPHIN 1000 MG IV (14:18)
[2024-08-25] MEDS: STERILE WATER FOR INJECTION 10 ML IV (14:18)
[2024-08-25 15:41] VITALS: BP 128/69
[2024-08-25] MEDS: SINGULAIR 10 MG PO (17:19)
[2024-08-25] MEDS: LOVENOX 40 MG SC (17:19)
[2024-08-25] MEDS: XALATAN OPHTHALMIC SOLUTION BOTH EYES (17:19)
[2024-08-25 17:33] VITALS: BP 146/87
[2024-08-25] MEDS: TYLENOL 650 MG PO (18:19)
[2024-08-25] MEDS: XALATAN OPHTHALMIC SOLUTION 1 DROP BOTH EYES (19:55)
[2024-08-25 23:57] VITALS: BP 126/75
[2024-08-26] MEDS: ANESTHETIC LOZENGE 1 LOZENGE PO (02:17)
[2024-08-26] MEDS: PULMICORT 0.5 MG INH (07:12)
[2024-08-26] MEDS: SODIUM CHLORIDE 3% FOR INHALATION 1 VIAL INH ×2 (07:12→19:11)
[2024-08-26] MEDS: DUONEB 3 ML INH ×4 (07:12→19:11)
[2024-08-26 07:38] VITALS: BP 131/69
[2024-08-26 08:00] LABS: % Basophils 0.6 % (0-2); % Eosinophils 0.4 % (0-6); % Immature Granulocytes 0.3 % (0-0.5); % Lymphocytes 27.3 % (20.5-51.1); % Monocytes 9.5 % (1.7-9.3); % Neutrophils 61.9 % (42.2-75.2); Absolute Basophils 0.1 10^3/uL (0-0.2); Absolute Lymphocytes 2.5 10^3/uL (1.2-3.4); Absolute Monocytes 0.9 10^3/uL (0.1-0.6); Absolute Neutrophils 5.7 10^3/uL (1.4-6.5); Hematocrit 38.2 % (37.0-47.0); Hemoglobin 12.9 g/dL (12.0-16.0); Mean Corp Hgb Conc. 33.8 g/dL (33.0-37.0); Mean Corpuscular Hgb 29.8 pg (27.0-31.0); Mean Corpuscular Volume 88.2 fL (81.0-99.0); Mean Platelet Volume 9.6 fL (7.4-10.4); Nucleated Red Blood Cells % 0 %; Platelet Count 279 10^3/uL (130-400); Red Blood Cell Count 4.33 10^6/uL (4.20-5.40); Red Cell Dist. Width 12.7 % (11.5-14.5); White Blood Cell Count 9.2 10^3/uL (4.8-10.8)
[2024-08-26] MEDS: PROTONIX 40 MG PO (09:01)
[2024-08-26] MEDS: ASACOL, DELZICOL DR PO (09:01)
[2024-08-26] MEDS: RESTASIS 0.05% OPHTHALMIC EMULSION 1 DROPS BOTH EYES ×2 (09:01→17:16)
[2024-08-26] MEDS: VITAMIN D3 (cholecalciferol) 25 MCG PO (09:01)
[2024-08-26] MEDS: COZAAR 25 MG PO (09:01)
[2024-08-26] MEDS: VIBRAMYCIN 100 MG PO ×2 (09:01→21:06)
[2024-08-26] MEDS: SOLU-MEDROL PF 40 MG IV (09:01)
[2024-08-26 09:11] LABS: Blood Urea Nitrogen 18 mg/dl (7-17); Calcium 9.2 mg/dl (8.4-10.2); Carbon Dioxide 27 mmol/L (22-30); Chloride 101 mmol/L (98-107); Estimated Creatinine Clearance 60 ml/min; Glucose 89 mg/dl (70-99); Potassium 4.4 mmol/L (3.5-5.1); Sodium 138 mmol/L (135-145); eGFR > 60.00
[2024-08-26] MEDS: MUCINEX 1200 MG PO ×2 (11:03→21:06)
--- NOTE | 2024-08-26 11:08 | CM ---
Addendum entered by Padilla Fay 08/26/24 12:53:
Silvana Sullivan estrada checked with [facility] pharmacist: $159.35 for 30 days. Both pt and her daughter are aware and daughter stated it affordable.
Original Note:
CM following re: discharge planning.
Reviewed pt's chart, met with pt and pt's daughter Sosa at bedside.
According to Master Cook, pt will need home Oxygen and pt probably will be discharged tomorrow. Both pt and her daughter are aware, expressed their agreement. IMM reviewed, placed on chart, pt has a copy.
RT ambulatory pulse Ox evaluation noted, pt qualifies for home Oxygen.
CM placed an order for home oxygen with [facility] with a request that portable O2 tank will be delivered to pt's room at today and a concentrator will be delivered to pt's home tomorrow after discharge. CM spoke to [facility] DME liaison and she
confirmed the delivery plan.
D/C plan: home to daughter's house with home Oxygen. (Address: [address] [place] [id number]). Daughter to transport at discharge.
CM will follow with discharge plan updates as hospitalization progresses
[2024-08-26 11:37] VITALS: BP 129/71; BP 129/78; PULSE 91
--- NOTE | 2024-08-26 11:40 | W.PN.PUL3 ---
Today's Communication / Plan
-
-Continue current treatment plan
-Plan to switch to Trelegy 200 at the time of discharge along with montelukast 10 mg nightly with tapering prednisone
-Outpatient follow-up with pulmonary clinic in about 4 weeks time, information added to discharge folder
Assessment
-
Patient is a 74y F with PMH significant for bronchiectasis, ulcerative colitis and history of TB s/p INH treatment who presents to ED complaining of SOB. Patient states that she has been having issues for several days with SOB at night. She
feels fairly well during the day, but wakes in the night feeling very SOB and gasping for air. She has mild, minimally productive cough. No fevers / chills. No known sick contacts. Patient denies any GI or complaints. Patient reports
increased symptoms particularly around cold weather.
Patient woke this evening around midnight feeling SOB. She took her albuterol inhaler with improvement in her symptoms and was able to fall back to sleep.
She woke again around 2 AM and felt extremely SOB. On this occasion she felt no improvement at all with her albuterol and presented to the ED for further evaluation.
Workup in the emergency room showed evidence of pneumonia along with chronic bronchiectasis. Pulmonary consultation was requested for further input.
#1. Acute Pneumonia. Predominantly in the superior segment of right lower lobe.
-Continue ceftriaxone and doxycycline
-Negative sputum culture
-Influenza and COVID screen is negative
-Negative Legionella and pneumococcal antigen
#2. Acute Asthma exacerbation. Patient's symptoms are very suggestive of underlying hyperreactive airway disease. She reports increased symptom at nights, exacerbated by cold weather with cough, wheezing and mucous plug expectoration. Positive
family history of asthma. Also noted to have eosinophilia.
-Considering concomitant bronchiectasis and suspected asthma, need to rule out ABPA, await IgE level (still pending)
-Continue IV Solu-Medrol 40 daily for now
-Continue DuoNeb 4 times daily with budesonide nebulized twice a day
-Patient will need inhaled corticosteroids at discharge
-Needs pulmonary function testing and 6-minute walk test as outpatient
-Continue montelukast 10 mg nightly
#3. H/O Bronchiectasis. Patient reports h/o latent TB s/p treatment 6 months ago. Upper lobe scarring could be related to prior infections. Underlying IBD also increased risk of bronchiectasis. Need to evaluate for other cause of Bronchiectasis, can
be pursued as out patient (Ig levels, HIV, Alpha 1 AT level etc.). At home, patient takes albuterol and hypertonic saline 3 times daily for airway clearance.
-Eosinophil count elevated
-Await IgE level, if elevated will screen for Aspergillus Ab
-Await AFB to evaluate for MAC
-Continue Airway clearance, with3% Sodium Chloride nebulized q 12 hrs
-Flutter valve, depending on clinical response might need vest therapy
-Patient follows up with a Concrete Wall Grinder Operator in [place].
#4. h/o latent TB, treated about 30 years ago. 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
-Current presentation is not suggestive of typical active tuberculosis
-Will check sputum for AFB stain and culture more for possible MAC infection
Updated patient's daughter at bedside
l time spent on this consultation/encounter __30__ minutes which includes review of history, physical exam, medications, laboratory data, personal review of imaging, extensive review of outpatient records, discussion with care team and respiratory
therapy.
Data:
CT Chest 08/2024: There is no CT evidence of pulmonary embolism
There is airspace disease in the superior segment of the right lower lobe. There is airspace disease involving both upper lobes with small cystic foci and bronchial wall thickening. There is scarring in the right apex. There is bronchiectasis in
both lower lobes.
There is no enlarged hilar or mediastinal adenopathy. There is no aortic aneurysm or dissection. There is no pericardial effusion.
The right lobe of the thyroid is larger than the left with low-attenuation foci seen in both lobes.
There is no adrenal mass.
There is an S-shaped scoliosis with degenerative changes in the thoracic spine
Subjective Data
-
Date of Service:
Date of Service: August 26, 2024
Subjective:
Patient continues to improve clinically. Cough improving, wheezing resolving.
Review of Systems
Genitourinary: Other (All 14 systems reviewed and negative except as stated above in the history of present illness.)
Objective Data
Data Reviewed
Vital Signs / I&O / Oxygen:
Vital Signs
Temp Pulse Resp BP Pulse Ox
97.7 F 90 14 131/69 97
08/26/24 07:38 08/26/24 11:09 08/26/24 11:09 08/26/24 07:38 08/26/24 08:40
Intake and Output
08/25/24 08/26/24 08/27/24
06:59 06:59 06:59
Intake Total 840 / 840 1180 / 1180
Output Total 100 / 100
Balance 740 / 740 1180 / 1180
SaO2 97
Nasal Cannula flow liters per 2
minute
Physical Exam
General: Comfortable
HEENT: Normocephalic
Cardiovascular: S1-S2 and Regular Rhythm
Respiratory: Wheeze (Improving wheezing bilaterally. Minimal end expiratory wheezing noted today on exam)
GI: Soft and Non Distended
Neurology: Awake
Skin: Warm
Labs/Micro/Reports
Lab Data
08/26/24 07:20
08/26/24 07:20
Microbiology
08/25/24 10:24 Sputum Respiratory Culture - Final
08/25/24 10:24 Sputum Gram Stain - Final
08/24/24 15:57 Urine Legionella Urinary Antigen - Final
Negative for Legionella pneumophila Serogroup 1 antigen.
A negative result does not rule out the possiblity of
Legionella infection due to other serogroups or species of
Legionella. Clinical correlation is recommended.
08/24/24 15:57 Urine Streptococcus pneumoniae Antigen (M - Final
Negative for Streptococcus pneumoniae antigen.
A negative result does not exclude infection with
Streptococcus pneumoniae. Clinical correlation is
recommended.
08/24/24 03:19 Nasal Swab Influenza Types A & B (YOSEPH) - Final
Negative for Influenza A & B, NAAT
Negative results must be combined with clinical observations
and patient history.
Nucleic Acid Amplification test (NAAT)performed on the
[employer] platform.
--- NOTE | 2024-08-26 11:49 | W.PN.HOSP.TC ---
Today's Communication/Plan
-
Monitor vital signs
see plan
Wean oxygen as tolerated
Home O2 evaluation tomorrow
Discussed with pulmonary, possible discharge tomorrow
Will transition to Trelegy on discharge
Continue Singulair
Continue with IV steroids, nebs
Discussed with daughter at bedside
Assessment / Plan
Assessment / Plan
General: Other (74y F in no acute distress.)
HEENT: Anicteric, pink conjunctiva
Respiratory: Wheezes bilateral
Cardiac: S1/S2 and Regular Rhythm; No Murmur
GI: Soft, Non Tender, Non Distended and Normal Bowel Sounds
Musculoskeletal: No Edema
Neuro: AO x 3
Acute hypoxic respiratory insufficiency likely secondary to pneumonia and asthma exacerbation
Bronchiectasis
RLL Pneumonia
Paroxysmal Nocturnal Dyspnea
- CT scan done in the ED shows R base consolidation / pneumonia - though no fever, leukocytosis, etc.
Continue with IV antibiotic
Continue with IV steroids, nebs
Wean oxygen as tolerated
Will need home O2 evaluation prior to discharge
- Follow for clinical improvement
Pulmonary added Singulair
Switching inhaler to Trelegy, case assistant for cost
Add Mucinex
Benign Hypertension
- Stable. Continue losartan with holding parameters.
Ulcerative Colitis
- Stable - no acute / active GI symptoms at present.
- Patient reports about 20 years or so of chronic steroid therapy in the past for colitis.
- Has developed multiple complications including osteoporosis, etc.
- Continue Lialda.
- Follow for any new symptoms.
GERD
- Stable. Continue PPI.
DVT Prophylaxis: Lovenox
Code Status: Full
I spent a total of 52 minutes with the patient or on the floor. More than 50% of this time involved counseling and coordination of care.
Anticipated Discharge: Within 24 hours
Subjective/Interval History
-
Date of Service: August 26, 2024
has some Cough
Objective Data
-
Labs:
Laboratory Results
08/26/24
07:20
WBC 9.2
Hgb 12.9
Hct 38.2
Plt Count 279
Sodium 138
Potassium 4.4
Chloride 101
Carbon Dioxide 27
BUN 18 H
Creatinine 0.6
Glucose 89
Calcium 9.2
Vital Signs:
Vital Signs
Temp Pulse Resp BP Pulse Ox
97.7 F 90 14 131/69 97
08/26/24 07:38 08/26/24 11:09 08/26/24 11:09 08/26/24 07:38 08/26/24 08:40
I&O
08/25/24 08/26/24 08/27/24
06:59 06:59 06:59
Intake Total 840 / 840 1180 / 1180
Output Total 100 / 100
Balance 740 / 740 1180 / 1180
[2024-08-26] MEDS: ROCEPHIN 1000 MG IV (14:08)
[2024-08-26] MEDS: STERILE WATER FOR INJECTION 10 ML IV (14:08)
[2024-08-26 15:53] VITALS: BP 141/68
[2024-08-26] MEDS: SINGULAIR 10 MG PO (17:16)
[2024-08-26] MEDS: LOVENOX 40 MG SC (17:16)
[2024-08-26 19:07] LABS: IgE 135 kU/L (<=214)
[2024-08-26] MEDS: PULMICORT INH (19:14)
[2024-08-26] MEDS: TYLENOL 650 MG PO (19:22)
[2024-08-26] MEDS: XALATAN OPHTHALMIC SOLUTION 1 DROP BOTH EYES (21:06)
[2024-08-26 23:38] VITALS: BP 114/61
[2024-08-27 06:52] LABS: % Basophils 0.7 % (0-2); % Immature Granulocytes 0.4 % (0-0.5); % Lymphocytes 32.1 % (20.5-51.1); % Neutrophils 56.8 % (42.2-75.2); Absolute Basophils 0.1 10^3/uL (0-0.2); Absolute Eosinophils 0.1 10^3/uL (0-0.7); Absolute Lymphocytes 2.7 10^3/uL (1.2-3.4); Absolute Monocytes 0.8 10^3/uL (0.1-0.6); Absolute Neutrophils 4.8 10^3/uL (1.4-6.5); Hematocrit 38.3 % (37.0-47.0); Mean Corp Hgb Conc. 33.9 g/dL (33.0-37.0); Mean Corpuscular Hgb 30.2 pg (27.0-31.0); Mean Corpuscular Volume 89.1 fL (81.0-99.0); Mean Platelet Volume 9.3 fL (7.4-10.4); Nucleated Red Blood Cells % 0 %; Platelet Count 261 10^3/uL (130-400); White Blood Cell Count 8.4 10^3/uL (4.8-10.8)
[2024-08-27 07:27] LABS: Blood Urea Nitrogen 22 mg/dl (7-17); Calcium 9.5 mg/dl (8.4-10.2); Carbon Dioxide 32 mmol/L (22-30); Chloride 103 mmol/L (98-107); Estimated Creatinine Clearance 52 ml/min; Glucose 86 mg/dl (70-99); Potassium 4.8 mmol/L (3.5-5.1); Sodium 140 mmol/L (135-145); eGFR > 60.00
[2024-08-27] MEDS: SODIUM CHLORIDE 3% FOR INHALATION 1 VIAL INH (07:27)
[2024-08-27] MEDS: PULMICORT 0.5 MG INH (07:27)
[2024-08-27] MEDS: DUONEB 3 ML INH ×2 (07:27→11:25)
[2024-08-27 07:50] VITALS: BP 136/88
[2024-08-27] MEDS: COZAAR 25 MG PO (09:00)
[2024-08-27] MEDS: PROTONIX 40 MG PO (09:00)
[2024-08-27] MEDS: RESTASIS 0.05% OPHTHALMIC EMULSION 1 DROPS BOTH EYES (09:00)
[2024-08-27] MEDS: VIBRAMYCIN 100 MG PO (09:00)
[2024-08-27] MEDS: VITAMIN D3 (cholecalciferol) 25 MCG PO (09:00)
[2024-08-27] MEDS: MUCINEX 1200 MG PO (09:00)
[2024-08-27] MEDS: SOLU-MEDROL PF IV ×2 (09:02→10:19)
[2024-08-27] MEDS: ASACOL, DELZICOL DR 2400 MG PO (09:02)
[2024-08-27] MEDS: FLUSH (NSS) 2 FLUSH IV (09:03)
[2024-08-27] MEDS: DELTASONE 40 MG PO (10:18)
--- NOTE | 2024-08-27 11:17 | W.PN.HOSP.TC ---
Addendum entered and electronically signed by Willy Callahan MD 08/27/24 11:31:
Time of discharge 38 minutes
Original Note:
Today's Communication/Plan
-
monitor vitals
see plan
dc today on PO abx and steroids
close optho follow up
home o2
inhalers
Assessment / Plan
Assessment / Plan
General: Other (74y F in no acute distress.)
HEENT: Anicteric, pink conjunctiva
Respiratory: Wheezes bilateral
Cardiac: S1/S2 and Regular Rhythm; No Murmur
GI: Soft, Non Tender, Non Distended and Normal Bowel Sounds
Musculoskeletal: No Edema
Neuro: AO x 3
Acute hypoxic respiratory insufficiency likely secondary to pneumonia and asthma exacerbation
Bronchiectasis
RLL Pneumonia
Paroxysmal Nocturnal Dyspnea
- CT scan done in the ED shows R base consolidation / pneumonia - though no fever, leukocytosis, etc.
Switch antibiotics to oral
Discussed with pulmonary, will do lower dose of prednisone given glaucoma history
I texted Dr. Campbell Grant from ophthalmology so patient can be seen the office today, awaiting reply
Wean oxygen as tolerated
qualified for home o2; 2L
- Follow for clinical improvement
Pulmonary added Singulair
Switching inhaler to Trelegy on dc
Add Mucinex
Benign Hypertension
- Stable. Continue losartan with holding parameters.
Ulcerative Colitis
- Stable - no acute / active GI symptoms at present.
- Patient reports about 20 years or so of chronic steroid therapy in the past for colitis.
- Has developed multiple complications including osteoporosis, etc.
- Continue Lialda.
- Follow for any new symptoms.
hx of glaucoma
with some headache which is improving
Continue with eye drops
advised to be seen by ophthalmology outpatient for examination
GERD
- Stable. Continue PPI.
DVT Prophylaxis: Lovenox
Code Status: Full
Anticipated Discharge: Today
Subjective/Interval History
-
Date of Service: August 27, 2024
denies pain
Objective Data
-
Labs:
Laboratory Results
08/27/24
06:31
WBC 8.4
Hgb 13.0
Hct 38.3
Plt Count 261
Sodium 140
Potassium 4.8
Chloride 103
Carbon Dioxide 32 H
BUN 22 H
Creatinine 0.7
Glucose 86
Calcium 9.5
Vital Signs:
Vital Signs
Temp Pulse Resp BP Pulse Ox
98.9 F 86 16 136/88 96
08/27/24 07:50 08/27/24 08:19 08/27/24 08:19 08/27/24 09:00 08/27/24 08:19
I&O
08/26/24 08/27/24 08/28/24
06:59 06:59 06:59
Intake Total 1180 / 1180 840 / 840 480 / 480
Balance 1180 / 1180 840 / 840 480 / 480
--- NOTE | 2024-08-27 11:31 | W.DCSUMMARY ---
Discharge Summary
Discharge Data
Date of Admission: 08/24/24
Date of Discharge: 08/27/24
-
Pending Results: No
Hospital Course
74-year-old female with past medical history of asthma, hypertension, ulcerative colitis, glaucoma, bronchiectasis, GERD came to the hospital with acute hypoxic respiratory insufficiency secondary to pneumonia and asthma exacerbation. Patient was
seen by pulmonary throughout hospitalization. Chest x-ray was consistent with right lower lobe pneumonia. Patient was initially started with IV antibiotics were later transitioned to p.o. antibiotics prior to discharge. She was also started on IV
steroids which improved her symptoms and prior to discharge she was transitioned to prednisone with taper. Patient inhaler was also switched to Trelegy on discharge. She also had mild headache which was improving and given history of glaucoma,
show instructed to follow-up with ophthalmology soon outpatient. Upon oxygen evaluation, she qualified for home oxygen. Once her symptoms continue to improve, she was then discharged home with instructions to follow-up with all her physicians
outpatient.
Discharge Plan
-
Patient Disposition: Home (Routine Discharge)
Discharge Diagnosis/Procedures: Acute hypoxic respiratory insufficiency secondary to pneumonia and asthma exacerbation
History of glaucoma
Hypertension
Diet: As tolerated
Activity: As tolerated
Driving Restrictions: As prior to admission
Bathing Restrictions: None
Activity Restrictions/Additional Instructions:
Continue with hypotonic meds twice daily
Referrals:
Shiloh Villanueva MD [Active] - in three to four weeks (Patient needs full PFTs and 6 min walk test also. )
Campbell Grant MD [Active] -
([facility]
call the office. [phone] for today's appointment)
PRIVATE,PHYSICIAN [Family Provider] - in less than 1 week
Prescriptions:
New
Trelegy Ellipta 200-62.5-25 mcg blister with device
1 inh inhalation DAILY Qty: 60 0RF
montelukast 10 mg Tablet
10 mg PO QPM Qty: 30 0RF
guaifenesin 600 mg Tablet Extended Release 12hr
1,200 mg PO Q12 7 Days Qty: 28 0RF
acetaminophen 325 mg Tablet
650 mg PO Q4HPRN PRN (Reason: Mild Pain / Temp > 101) Qty: 0 0RF
cefdinir 300 mg Capsule
300 mg PO Q12 Qty: 10 0RF
doxycycline hyclate 100 mg Capsule
100 mg PO Q12 Qty: 10 0RF
prednisone 10 mg Tablet
See Rx Instructions .ROUTE .COMPLEX Qty: 26 0RF
Rx Instructions:
Take By Mouth:
40 mg daily x2 days, 30 mg daily x3 days,
20 mg daily x3 days, 10 mg daily x3 days.
Continued
losartan 50 mg Tablet
25 mg PO DAILY
Rx Instructions:
per pt dose recently decreased from 50 mg to 25 mg daily
latanoprost 0.005 % Drops
1 drp BOTH EYES QPM
omeprazole 40 mg Capsule,Delayed Release(Dr/Ec)
40 mg PO DAILY
calcium carbonate 500 mg calcium (1,250 mg) Tablet
1,000 mg PO DAILY
cyclosporine [Restasis] 0.05 % Dropperette
1 drp BOTH EYES BID
cholecalciferol (vitamin D3) 25 mcg (1,000 unit) Tablet
25 mcg PO DAILY
mesalamine [Lialda] 1.2 gram Tablet,Delayed Release (Dr/Ec)
2.4 g PO DAILY
Rx Instructions:
takes 2 tabs daily
albuterol sulfate 1.25 mg/3 mL solution for nebulization
1.25 mg inhalation QID PRN (Reason: shortness of breath or wheezing) Qty: 90 0RF
albuterol sulfate 90 mcg/actuation Hfa Aerosol Inhaler
2 inh INHALATION R DAILY Qty: 8.5 0RF
Discontinued
Stiolto Respimat 2.5-2.5 mcg/actuation Mist
2 puff INHALATION DAILY
Discharge Orders:
Discharge Patient (As Directed); Ordered 08/27/24
Ordered By: Willy Callahan
Discharge Date and Time
Discharge Date/Time: 08/27/24 16:01
Print Language: MONTSERRATIAN
--- NOTE | 2024-08-27 11:53 | CM ---
CM following re: discharge planning.
Reviewed pt's chart, met with pt.
Discharge order noted. Pt is aware, expressed her agreement with discharge. IMM reviewed, placed on chart, pt has a copy. pt stated her daughter will transport home after work.
Portable Oxygen tank delivered by [employer] and is in the pt's room. Pt is aware to call [employer] when home for oxygen concentrator delivery.
No after care VN services indicated.
D/C plan: home to daughter's house with home Oxygen and daughter support. Daughter to transport home.
--- NOTE | 2024-08-27 12:14 | W.PN.PUL3 ---
Today's Communication / Plan
-
-Transition Solu-Medrol to prednisone, can go home on tapering dose of prednisone, 30 mg daily for 3 days, then 20 mg for 3 days then 10 mg for 3 days then stop
-Start Trelegy 200 at the time of discharge
-Discontinue Stiolto
-Prescribe montelukast 10 mg daily at discharge
-Continue hypertonic saline as she was doing at home
-Outpatient follow-up with pulmonary clinic
-Can transition to oral antibiotic, recommend total 7 days of treatment with Omnicef or Augmentin
Assessment
-
Patient is a 74y F with PMH significant for bronchiectasis, ulcerative colitis and history of TB s/p INH treatment who presents to ED complaining of SOB. Patient states that she has been having issues for several days with SOB at night. She
feels fairly well during the day, but wakes in the night feeling very SOB and gasping for air. She has mild, minimally productive cough. No fevers / chills. No known sick contacts. Patient denies any GI or complaints. Patient reports
increased symptoms particularly around cold weather.
Patient woke this evening around midnight feeling SOB. She took her albuterol inhaler with improvement in her symptoms and was able to fall back to sleep.
She woke again around 2 AM and felt extremely SOB. On this occasion she felt no improvement at all with her albuterol and presented to the ED for further evaluation.
Workup in the emergency room showed evidence of pneumonia along with chronic bronchiectasis. Pulmonary consultation was requested for further input.
#1. Acute Pneumonia. Predominantly in the superior segment of right lower lobe.
-Has been on ceftriaxone and doxycycline, can switch to oral antibiotic for a total of 7 days.
-Negative sputum culture
-Influenza and COVID screen is negative
-Negative Legionella and pneumococcal antigen
#2. Acute Asthma exacerbation. Patient's symptoms are very suggestive of underlying hyperreactive airway disease. She reports increased symptom at nights, exacerbated by cold weather with cough, wheezing and mucous plug expectoration. Positive
family history of asthma. Also noted to have eosinophilia.
-IgE level 135, not suggestive of ABPA
-Switch Solu-Medrol to p.o. prednisone
-Continue DuoNeb 4 times daily with budesonide nebulized twice a day, transition to Trelegy 200 at discharge
-Patient will need inhaled corticosteroids at discharge
-Needs pulmonary function testing and 6-minute walk test as outpatient
-Continue montelukast 10 mg nightly
#3. H/O Bronchiectasis. Patient reports h/o latent TB s/p treatment 6 months ago. Upper lobe scarring could be related to prior infections. Underlying IBD also increased risk of bronchiectasis. Need to evaluate for other cause of Bronchiectasis, can
be pursued as out patient (Ig levels, HIV, Alpha 1 AT level etc.). At home, patient takes albuterol and hypertonic saline 3 times daily for airway clearance.
-Eosinophil count elevated
-IgE normal
-Await AFB to evaluate for MAC
-Continue Airway clearance, with3% Sodium Chloride nebulized q 12 hrs
-Flutter valve, depending on clinical response might need vest therapy
-Patient follows up with a Event Mgr in [place].
#4. h/o latent TB, treated about 30 years ago. 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
-Current presentation is not suggestive of typical active tuberculosis
-Will check sputum for AFB stain and culture more for possible MAC infection
Updated patient regarding need for outpatient follow-up with pulmonary clinic I went over the medications and nebulized medication she should be on post discharge.
l time spent on this consultation/encounter __42__ minutes which includes review of history, physical exam, medications, laboratory data, personal review of imaging, extensive review of outpatient records, discussion with care team and respiratory
therapy.
Data:
CT Chest 08/2024: There is no CT evidence of pulmonary embolism
There is airspace disease in the superior segment of the right lower lobe. There is airspace disease involving both upper lobes with small cystic foci and bronchial wall thickening. There is scarring in the right apex. There is bronchiectasis in
both lower lobes.
There is no enlarged hilar or mediastinal adenopathy. There is no aortic aneurysm or dissection. There is no pericardial effusion.
The right lobe of the thyroid is larger than the left with low-attenuation foci seen in both lobes.
There is no adrenal mass.
There is an S-shaped scoliosis with degenerative changes in the thoracic spine
Subjective Data
-
Date of Service:
Date of Service: August 27, 2024
Subjective:
Patient comfortably sitting in bed, reports feeling much better.
Review of Systems
Genitourinary: Other (All 14 systems reviewed and negative except as stated above in the history of present illness.)
Objective Data
Data Reviewed
Vital Signs / I&O / Oxygen:
Vital Signs
Temp Pulse Resp BP Pulse Ox
98.9 F 86 16 136/88 96
08/27/24 07:50 08/27/24 08:19 08/27/24 08:19 08/27/24 09:00 08/27/24 08:19
Intake and Output
08/26/24 08/27/24 08/28/24
06:59 06:59 06:59
Intake Total 1180 / 1180 840 / 840 480 / 480
Balance 1180 / 1180 840 / 840 480 / 480
SaO2 96
Nasal Cannula flow liters per 2
minute
Physical Exam
General: Comfortable
HEENT: Normocephalic
Cardiovascular: S1-S2 and Regular Rhythm
Respiratory: Wheeze (Wheezing essentially resolved)
GI: Soft and Non Distended
Neurology: Awake
Skin: Warm
Labs/Micro/Reports
Lab Data
08/27/24 06:31
08/27/24 06:31
Microbiology
08/25/24 10:24 Sputum Respiratory Culture - Final
08/25/24 10:24 Sputum Gram Stain - Final
08/24/24 15:57 Urine Legionella Urinary Antigen - Final
Negative for Legionella pneumophila Serogroup 1 antigen.
A negative result does not rule out the possiblity of
Legionella infection due to other serogroups or species of
Legionella. Clinical correlation is recommended.
08/24/24 15:57 Urine Streptococcus pneumoniae Antigen (M - Final
Negative for Streptococcus pneumoniae antigen.
A negative result does not exclude infection with
Streptococcus pneumoniae. Clinical correlation is
recommended.
[2024-08-27] MEDS: OMNICEF 300 MG PO (13:06)
[2024-08-27] MEDS: STERILE WATER FOR INJECTION IV (13:07)
[2024-08-27 14:34] VITALS: BP 126/69
[2024-08-27 15:12] VITALS: BP 142/79; PULSE 94; O2SAT 99
[2024-08-27] MEDS: DUONEB INH (15:19)
[2024-08-27] MEDS: TYLENOL 650 MG PO (15:42)
== END 2024-08-27 16:01 | disposition home or self-care (01) | DRG 202 ==
LOC: 4 EAST ACU 07:51
PROVIDERS: Physician Assistant; ADMITTING PHYSICIAN Hospitalist; ATTENDING PHYSICIAN Internal Medicine; CONSULT PHYSICIAN Internal Medicine; EMERGENCY PHYSICIAN Student in an Organized Health Care Education/Training Program
DX: J45.901 Unspecified asthma with (acute) exacerbation (principal); J18.9 Pneumonia, unspecified organism; K51.90 Ulcerative colitis, unspecified, without complications; J47.0 Bronchiectasis with acute lower respiratory infection; I10 Essential (primary) hypertension; K21.9 Gastro-esophageal reflux disease without esophagitis; M81.0 Age-related osteoporosis without current pathological fracture; R09.02 Hypoxemia; R06.89 Other abnormalities of breathing; D72.10 Eosinophilia, unspecified; Z79.51 Long term (current) use of inhaled steroids; Z88.5 Allergy status to narcotic agent; Z79.899 Other long term (current) drug therapy; Z86.15 Personal history of latent tuberculosis infection; Z82.5 Family history of asthma and other chronic lower respiratory diseases; Z11.52 Encounter for screening for COVID-19
CPT/HCPCS: 71046; 71275; 80048; 80053; 82785; 83880; 84484; 85025; 85027; 87015; 87116; 87205; 87449; 87502; 87811; 87899; 93005; 94640; 94667; 94668; 96361; 96374; 97116; 97162; 97166; 97530; 99285; Q9967